=== PATIENT | female | born 1930 | race Caucasian/White ===

== ENCOUNTER 2018-07-13 13:12 | Emergency (ER) | payer OTHER ==
[~2018-07-13] VITALS: Ht 165.1 cm; Wt 63.5 kg
[~2018-07-13 13:12] MED LIST: CLONAZEPAM1 MG PO; LISINOPRIL-HCT1 EAC1; LORTAB 7.5-5001 EACH PO; PILOCARPINE HCL; SIMVASTATIN10 MG PO; TRAVATAN Z5 ML; XARELTO10 MG PO
--- OUTSIDE RECORDS SUMMARY | 2018-07-13 13:16 | XMS REPORT ---
Author Author [facility] Address Unknown Phone Unavailable Care Team Providers Care Trailer Sections Assembler Name Role Phone CARLENE COBOS Unavailable Unavailable ANDRZEJ KAISER Unavailable Unavailable Problems This patient has no known problems. Allergies, Adverse Reactions, Alerts This patient has no known allergies or adverse reactions. Medications This patient has no known medications. Results Test Description Test Time Test Comments Text Results Atomic Results Result Comments BLOOD CULTURE 2017-12-17 18:00:00 CULTURE (BEAKER) (test iryh=9689) No growth in 5 days BLOOD [id number] 18:00:00* Test Item Value Reference Range Comments CULTURE (BEAKER) (test kdhh=9457) No growth in 5 days BASIC METABOLIC [id number] 12:17:00* Test Item Value Reference Range Comments SODIUM (BEAKER) (test suex=002) 134 meq/L 136-145 Discordant from previous results. Clinical correlation suggested. POTASSIUM (BEAKER) (test hmmy=830) 3.5 meq/L 3.5-5.1 CHLORIDE (BEAKER) (test sntl=539) 99 meq/L 98-107 CO2 (BEAKER) (test qtwv=087) 22 meq/L 22-29 BLOOD UREA NITROGEN (BEAKER) (test ouip=767) 13 mg/dL 7-21 CREATININE (BEAKER) (test qxeq=275) 0.78 mg/dL 0.57-1.25 GLUCOSE RANDOM (BEAKER) (test lwab=131) 91 mg/dL 70-105 CALCIUM (BEAKER) (test gjml=610) 9.8 mg/dL 8.4-10.2 EGFR (BEAKER) (test tblu=0413) 70 mL/min/1.73 sq m ESTIMATED GFR IS NOT ACCURATE CREATININE CLEARANCE IN PREDICTING GLOMERULAR FILTRATION RATE. ESTIMATED GFR IS NOT APPLICABLE FOR DIALYSIS PATIENTS. BASIC METABOLIC [id number] 11:25:00* Test Item Value Reference Range Comments SODIUM (BEAKER) (test gkdy=555) 134 meq/L 136-145 POTASSIUM (BEAKER) (test gobo=576) 3.9 meq/L 3.5-5.1 CHLORIDE (BEAKER) (test bzzn=149) 100 meq/L 98-107 CO2 (BEAKER) (test lral=345) 22 meq/L 22-29 BLOOD UREA NITROGEN (BEAKER) (test mgoh=726) 12 mg/dL 7-21 CREATININE (BEAKER) (test njja=520) 0.77 mg/dL 0.57-1.25 GLUCOSE RANDOM (BEAKER) (test twki=257) 104 mg/dL 70-105 CALCIUM (BEAKER) (test rihg=191) 9.5 mg/dL 8.4-10.2 EGFR (BEAKER) (test hlsp=6856) 71 mL/min/1.73 sq m ESTIMATED GFR IS NOT ACCURATE CREATININE CLEARANCE IN PREDICTING GLOMERULAR FILTRATION RATE. ESTIMATED GFR IS NOT APPLICABLE FOR DIALYSIS PATIENTS. [id number] 08:02:00* Test Item Value Reference Range Comments MAGNESIUM (BEAKER) (test pjdt=183) 1.7 mg/dL 1.6-2.6 CBC W/PLT COUNT & AUTO [id number] 07:41:00* Test Item Value Reference Range Comments WHITE BLOOD CELL COUNT (BEAKER) (test hjag=141) 8.6 K/ L 3.5-10.5 RED BLOOD CELL COUNT (BEAKER) (test fcxw=759) 3.44 M/ L 3.93-5.22 HEMOGLOBIN (BEAKER) (test azro=058) 10.2 GM/DL 11.2-15.7 HEMATOCRIT (BEAKER) (test uabn=943) 30.4 % 34.1-44.9 MEAN CORPUSCULAR VOLUME (BEAKER) (test blpm=367) 88.4 fL 79.4-94.8 MEAN CORPUSCULAR HEMOGLOBIN (BEAKER) (test tbtj=554) 29.7 pg 25.6-32.2 MEAN CORPUSCULAR HEMOGLOBIN CONC (BEAKER) (test xjgs=254) 33.6 GM/DL 32.2-35.5 RED CELL DISTRIBUTION WIDTH (BEAKER) (test irvq=916) 13.5 % 11.7-14.4 PLATELET COUNT (BEAKER) (test tlkv=476) 414 K/CU MM 150-450 MEAN PLATELET VOLUME (BEAKER) (test mabj=723) 10.2 fL 9.4-12.3 NUCLEATED RED BLOOD CELLS (BEAKER) (test cbeg=933) 0 /100 WBC 0-0 NEUTROPHILS RELATIVE PERCENT (BEAKER) (test yjem=875) 54 % LYMPHOCYTES RELATIVE PERCENT (BEAKER) (test aqgi=665) 28 % MONOCYTES RELATIVE PERCENT (BEAKER) (test aozy=203) 9 % EOSINOPHILS RELATIVE PERCENT (BEAKER) (test kyox=081) 7 % BASOPHILS RELATIVE PERCENT (BEAKER) (test wpfo=129) 1 % NEUTROPHILS ABSOLUTE COUNT (BEAKER) (test hmrq=354) 4.59 K/ L 1.56-6.13 LYMPHOCYTES ABSOLUTE COUNT (BEAKER) (test kcvg=336) 2.43 K/ L 1.18-3.74 MONOCYTES ABSOLUTE COUNT (BEAKER) (test ngkm=306) 0.80 K/ L 0.24-0.36 EOSINOPHILS ABSOLUTE COUNT (BEAKER) (test ijyo=336) 0.62 K/ L 0.04-0.36 BASOPHILS ABSOLUTE COUNT (BEAKER) (test fktp=928) 0.09 K/ L 0.01-0.08 IMMATURE GRANULOCYTES-RELATIVE PERCENT (BEAKER) (test spat=1424) 1 % 0-1 [id number] 07:09:00* Test Item Value Reference Range Comments MAGNESIUM (BEAKER) (test eflr=691) 1.4 mg/dL 1.6-2.6 BASIC METABOLIC [id number] 07:09:00* Test Item Value Reference Range Comments SODIUM (BEAKER) (test todz=811) 126 meq/L 136-145 POTASSIUM (BEAKER) (test ioki=729) 3.5 meq/L 3.5-5.1 CHLORIDE (BEAKER) (test tara=743) 95 meq/L 98-107 CO2 (BEAKER) (test cttp=083) 21 meq/L 22-29 BLOOD UREA NITROGEN (BEAKER) (test ajba=894) 16 mg/dL 7-21 CREATININE (BEAKER) (test svcu=606) 0.84 mg/dL 0.57-1.25 GLUCOSE RANDOM (BEAKER) (test upkg=824) 91 mg/dL 70-105 CALCIUM (BEAKER) (test vwik=308) 9.9 mg/dL 8.4-10.2 EGFR (BEAKER) (test altk=0285) 64 mL/min/1.73 sq m ESTIMATED GFR IS NOT ACCURATE CREATININE CLEARANCE IN PREDICTING GLOMERULAR FILTRATION RATE. ESTIMATED GFR IS NOT APPLICABLE FOR DIALYSIS PATIENTS. TROPONIN [id number] 07:08:00* Test Item Value Reference Range Comments TROPONIN I (BEAKER) (test vrkk=409) 0.03 ng/mL 0.00-0.03 Troponin I (TnI) levels must be interpreted in the context of the presenting sym ptoms and the clinical findings. Elevated TnI levels indicate myocardial damage, but are not specific for ischemic heart disease. Elevated TnI levels are seen in patients with other cardiac conditions (including myocarditis and congestive h eart failure), and slight TnI elevations occur in patients with other conditions , including sepsis, renal failure, acidosis, acute neurological disease, and per sistent tachyarrhythmia.CBC W/PLT COUNT & AUTO [id number] 06:25:00* Test Item Value Reference Range Comments WHITE BLOOD CELL COUNT (BEAKER) (test pbmk=773) 7.7 K/ L 3.5-10.5 RED BLOOD CELL COUNT (BEAKER) (test qzow=818) 3.26 M/ L 3.93-5.22 HEMOGLOBIN (BEAKER) (test yaqu=031) 9.4 GM/DL 11.2-15.7 HEMATOCRIT (BEAKER) (test gxmb=704) 28.3 % 34.1-44.9 MEAN CORPUSCULAR VOLUME (BEAKER) (test buvz=294) 86.8 fL 79.4-94.8 MEAN CORPUSCULAR HEMOGLOBIN (BEAKER) (test jrru=840) 28.8 pg 25.6-32.2 MEAN CORPUSCULAR HEMOGLOBIN CONC (BEAKER) (test moia=869) 33.2 GM/DL 32.2-35.5 RED CELL DISTRIBUTION WIDTH (BEAKER) (test koaq=330) 13.2 % 11.7-14.4 PLATELET COUNT (BEAKER) (test vfyx=875) 424 K/CU MM 150-450 MEAN PLATELET VOLUME (BEAKER) (test xukl=043) 9.6 fL 9.4-12.3 NUCLEATED RED BLOOD CELLS (BEAKER) (test xqco=385) 0 /100 WBC 0-0 NEUTROPHILS RELATIVE PERCENT (BEAKER) (test gwdk=026) 55 % LYMPHOCYTES RELATIVE PERCENT (BEAKER) (test xmpn=521) 28 % MONOCYTES RELATIVE PERCENT (BEAKER) (test vqws=053) 10 % EOSINOPHILS RELATIVE PERCENT (BEAKER) (test nahi=977) 5 % BASOPHILS RELATIVE PERCENT (BEAKER) (test htcf=144) 1 % NEUTROPHILS ABSOLUTE COUNT (BEAKER) (test oxgu=375) 4.29 K/ L 1.56-6.13 LYMPHOCYTES ABSOLUTE COUNT (BEAKER) (test hslr=676) 2.19 K/ L 1.18-3.74 MONOCYTES ABSOLUTE COUNT (BEAKER) (test wvbr=318) 0.75 K/ L 0.24-0.36 EOSINOPHILS ABSOLUTE COUNT (BEAKER) (test wwsk=201) 0.36 K/ L 0.04-0.36 BASOPHILS ABSOLUTE COUNT (BEAKER) (test verr=615) 0.09 K/ L 0.01-0.08 IMMATURE GRANULOCYTES-RELATIVE PERCENT (BEAKER) (test yvba=1349) 1 % 0-1 RAPID [id number] 15:15:00* Test Item Value Reference Range Comments RAPID CKMB (BEAKER) (test umvm=9048) 10.5 ng/mL 0.0-4.3 RAPID TROPONIN [id number] 15:15:00* Test Item Value Reference Range Comments RAPID TROPONIN I (BEAKER) (test isdl=8329) < ng/mL <0.05 CT, BRAIN, WITHOUT [id number] 15:15:00FINAL REPORT CT head without contrast. Comparisons: No Reason for exam: Syncope/faintingweakness. Discussion: Multiple axial CT images of the head are provided without contrast evaluated in brain and bone windows. Dose modulation, iterative reconstruction, and/or weight based adjustment of the mA/kV was utilized to reduce the radiation dose to as low as reasonably achievable. There is no CT evidence of intracranial hemorrhage, mass-effect, g ross hydrocephalus, shift, or extra-axial collections. Bilateral cerebral micro vascular changes are noted with chronic and age indeterminate appearing involvem ent. There are intracranial vascular calcifications. Mild prominence of the vent ricular system is likely reflection of volume loss. Correlate clinically for nor mal pressure hydrocephalus. The visualized dural sinus regions, orbital content s, paranasal sinuses, bones and surrounding soft tissues are unremarkable. I mpressions: 1. No specific evidence of acute intracranial abnormality. Microva scular changes as discussed. 2. Mild ventricular prominence for which normal pre ssure hydrocephalus cannot be excluded. Signed: Brennan Martineprema Andrade D ate/Time: 12/12/2017 15:15:07 C METABOLIC [id number] 15:04:00* Test Item Value Reference Range Comments SODIUM (BEAKER) (test zgsb=588) 128 meq/L 135-148 POTASSIUM (BEAKER) (test fjjr=784) 4.6 meq/L 3.6-5.5 CHLORIDE (BEAKER) (test vwve=099) 87 meq/L 98-106 CO2 (BEAKER) (test finh=868) 24 meq/L 24-32 BLOOD UREA NITROGEN (BEAKER) (test uism=383) 20 mg/dL 10-26 CREATININE (BEAKER) (test ezmb=970) 0.83 mg/dL 0.50-1.20 GLUCOSE RANDOM (BEAKER) (test mkoc=055) 116 mg/dL 70-110 CALCIUM (BEAKER) (test vbwm=862) 10.2 mg/dL 8.5-10.5 EGFR (BEAKER) (test cbpt=4848) 65 mL/min/1.73 sq m ESTIMATED GFR IS NOT ACCURATE CREATININE CLEARANCE IN PREDICTING GLOMERULAR FILTRATION RATE. ESTIMATED GFR IS NOT APPLICABLE FOR DIALYSIS PATIENTS. CBC W/PLT COUNT & AUTO [id number] 15:01:00* Test Item Value Reference Range Comments WHITE BLOOD CELL COUNT (BEAKER) (test vfku=018) 10.9 10e3/ L 4.0-10.0 RED BLOOD CELL COUNT (BEAKER) (test qiok=511) 3.75 10e6/ L 4.00-5.00 HEMOGLOBIN (BEAKER) (test xcwu=872) 11.2 g/dL 12.0-15.0 HEMATOCRIT (BEAKER) (test zxbx=075) 32.6 % 36.0-45.0 MEAN CORPUSCULAR VOLUME (BEAKER) (test mgzq=197) 87.0 fL 82.0-99.0 MEAN CORPUSCULAR HEMOGLOBIN (BEAKER) (test sjdh=200) 29.7 pg 27.0-33.0 MEAN CORPUSCULAR HEMOGLOBIN CONC (BEAKER) (test kjzb=277) 34.2 g/dL 32.0-36.0 RED CELL DISTRIBUTION WIDTH (BEAKER) (test rfna=201) 12.7 % 10.3-14.2 PLATELET COUNT (BEAKER) (test khfm=949) 445 10e3/ L 150-430 MEAN PLATELET VOLUME (BEAKER) (test pkog=193) 7.2 fL 6.5-10.5 NEUTROPHILS RELATIVE PERCENT (BEAKER) (test cneq=496) 73 % LYMPHOCYTES RELATIVE PERCENT (BEAKER) (test pklg=565) 18 % MONOCYTES RELATIVE PERCENT (BEAKER) (test wagf=356) 7 % EOSINOPHILS RELATIVE PERCENT (BEAKER) (test bemb=512) 2 % BASOPHILS RELATIVE PERCENT (BEAKER) (test eiiy=033) 1 % NEUTROPHILS ABSOLUTE COUNT (BEAKER) (test ulpa=134) 7.89 10e3/ L 1.80-8.00 LYMPHOCYTES ABSOLUTE COUNT (BEAKER) (test bwqb=767) 1.94 10e3/ L 1.48-4.50 MONOCYTES ABSOLUTE COUNT (BEAKER) (test vety=929) 0.78 10e3/ L 0.00-1.30 EOSINOPHILS ABSOLUTE COUNT (BEAKER) (test romu=117) 0.16 10e3/ L 0.00-0.50 BASOPHILS ABSOLUTE COUNT (BEAKER) (test xsla=987) 0.08 10e3/ L 0.00-0.20 LACTIC ACID, VENOUS, WHOLE [id number] 15:01:00* Test Item Value Reference Range Comments LACTATE BLOOD VENOUS (2) (BEAKER) (test hxoc=4856) 1.3 mmol/L 0.5-2.2 Effective 01/25/2016: Units/Reference Range ChangeNew: 0.5-2.2 mmol/L Previous: 5 -18 mg/dLURINALYSIS W/ [id number] 14:23:00* Test Item Value Reference Range Comments COLOR (BEAKER) (test pugd=935) Yellow CLARITY (BEAKER) (test shmf=089) Clear SPECIFIC GRAVITY UA (BEAKER) (test eeez=606) 1.011 1.001-1.035 PH UA (BEAKER) (test olsz=542) 5.5 5.0-8.0 PROTEIN UA (BEAKER) (test jcrn=688) Negative Negative GLUCOSE UA (BEAKER) (test betq=838) Negative Negative KETONES UA (BEAKER) (test sjni=530) Negative Negative BILIRUBIN UA (BEAKER) (test jmpa=033) Negative Negative BLOOD UA (BEAKER) (test rbbe=288) Negative Negative NITRITE UA (BEAKER) (test ggta=041) Negative Negative LEUKOCYTE ESTERASE UA (BEAKER) (test pqbn=768) Negative Negative UROBILINOGEN UA (BEAKER) (test vdsc=023) 0.2 mg/dL 0.2-1.0 BACTERIA (BEAKER) (test anoq=643) Occasional RBC UA-MANUAL (BEAKER) (test kpkn=0363) <5 /HPF WBC UA-MANUAL (BEAKER) (test kzia=1336) <5 /HPF SQUAMOUS EPITHELIAL MANUAL (BEAKER) (test bzak=4226) <5 /HPF SOURCE(BEAKER) (test jqvo=1156) RAD, CHEST, 1 VIEW, NON [id number] 14:09:00Reason for exam:->sobpt was seen at [facility] today drowsy and with low BP 109/64Should this be performed at the bedside?->YesFINAL REPORT TECHNIQUE: Frontal chest radiograph dated 12/12/2017. CLINICAL HISTORY: SOB COMPARISON STUDY: None IMPRESSION:Lungs are clear. No pleural effusion or pneumothorax. Cardiomediastinal silhouette is normal in size. No pulmonary edema. Degenerative changes are seen in the spine. No fracture. Signed: Cece Alcocer MDReport Verified Date/Time: 12/12/2017 14:09:49 Reading Location: [facility] Radiology Reading Room UE [id number] 10:35:00Surgical Pathology Report Case: [id number] Authorizing Provider: Hayde Kaiser, Collected: 11/28/2017 0858 Ordering Location: [facility] PERIOPERATIVE Received: 11/28/2017 0959 SERVICES Pathologist: Paulino Leigh MD Specimen: Condyle,Right Knee BONE, RIGHT KNEE CONDYLE, RESECTION: - OSTEOARTHRITIS - NO EVIDENCE OF MALIGNANCY Signing Pathologist Direct Phone Line: [phone] signed by Paulino Leigh MD on 12/06/2017 at 10:35 [id number], [id number] osteoarthritis of right kneeRight knee condyleThe specimen is received in a formalin-filled container and labeled with the patient's information labeled with patient information and labeled "right knee condyle" and consists of multiple fragments of bernabe-pink knee bone and soft tis brandy measuring 7.5 x 5 x 2 cm in aggregate. Bone fragments have distinct osteophy te formation with focal areas of eburnation. Section code: A1 and A2, bone submi tted for decalcification; A3, soft tissue and bone submitted for decalcification . CG/pl The sections show reduplication of the tidemark with eburnation and oste ophyte formation.BASIC METABOLIC [id number] 06:04:00* Test Item Value Reference Range Comments SODIUM (BEAKER) (test ejrz=575) 137 meq/L 136-145 POTASSIUM (BEAKER) (test hskr=417) 3.5 meq/L 3.5-5.1 CHLORIDE (BEAKER) (test elfa=764) 104 meq/L 98-107 CO2 (BEAKER) (test trug=279) 25 meq/L 22-29 BLOOD UREA NITROGEN (BEAKER) (test nckk=173) 12 mg/dL 7-21 CREATININE (BEAKER) (test eltf=721) 0.78 mg/dL 0.57-1.25 GLUCOSE RANDOM (BEAKER) (test rsdx=024) 108 mg/dL 70-105 CALCIUM (BEAKER) (test ucmb=541) 8.9 mg/dL 8.4-10.2 EGFR (BEAKER) (test lbbj=5872) 70 mL/min/1.73 sq m ESTIMATED GFR IS NOT ACCURATE CREATININE CLEARANCE IN PREDICTING GLOMERULAR FILTRATION RATE. ESTIMATED GFR IS NOT APPLICABLE FOR DIALYSIS PATIENTS. HEMOGLOBIN AND [id number] 05:17:00* Test Item Value Reference Range Comments HEMOGLOBIN (BEAKER) (test shmp=894) 9.6 GM/DL 11.2-15.7 HEMATOCRIT (BEAKER) (test stpp=047) 28.0 % 34.1-44.9 HEMOGLOBIN AND [id number] 18:18:00* Test Item Value Reference Range Comments HEMOGLOBIN (BEAKER) (test qofu=606) 9.1 GM/DL 11.2-15.7 HEMATOCRIT (BEAKER) (test vqhd=456) 27.6 % 34.1-44.9 Post transfusionBASIC METABOLIC [id number] 07:01:00* Test Item Value Reference Range Comments SODIUM (BEAKER) (test eivz=189) 136 meq/L 136-145 POTASSIUM (BEAKER) (test jonb=956) 3.9 meq/L 3.5-5.1 CHLORIDE (BEAKER) (test qdnw=099) 107 meq/L 98-107 CO2 (BEAKER) (test guze=176) 22 meq/L 22-29 BLOOD UREA NITROGEN (BEAKER) (test imli=900) 15 mg/dL 7-21 CREATININE (BEAKER) (test qzhl=627) 0.82 mg/dL 0.57-1.25 GLUCOSE RANDOM (BEAKER) (test opxc=306) 98 mg/dL 70-105 CALCIUM (BEAKER) (test flwr=252) 8.6 mg/dL 8.4-10.2 EGFR (BEAKER) (test uzga=9694) 66 mL/min/1.73 sq m ESTIMATED GFR IS NOT ACCURATE CREATININE CLEARANCE IN PREDICTING GLOMERULAR FILTRATION RATE. ESTIMATED GFR IS NOT APPLICABLE FOR DIALYSIS PATIENTS. HEMOGLOBIN AND [id number] 06:17:00* Test Item Value Reference Range Comments HEMOGLOBIN (BEAKER) (test quaf=509) 7.0 GM/DL 11.2-15.7 HEMATOCRIT (BEAKER) (test jtvb=858) 21.4 % 34.1-44.9 BASIC METABOLIC [id number] 07:41:00* Test Item Value Reference Range Comments SODIUM (BEAKER) (test uiyx=715) 131 meq/L 136-145 POTASSIUM (BEAKER) (test lrcx=220) 4.5 meq/L 3.5-5.1 CHLORIDE (BEAKER) (test mpgy=647) 104 meq/L 98-107 CO2 (BEAKER) (test bkxt=955) 20 meq/L 22-29 BLOOD UREA NITROGEN (BEAKER) (test fhwo=958) 21 mg/dL 7-21 CREATININE (BEAKER) (test cioy=742) 0.92 mg/dL 0.57-1.25 GLUCOSE RANDOM (BEAKER) (test kchk=096) 153 mg/dL 70-105 CALCIUM (BEAKER) (test nbdl=937) 8.6 mg/dL 8.4-10.2 EGFR (BEAKER) (test mjcx=6074) 58 mL/min/1.73 sq m ESTIMATED GFR IS NOT ACCURATE CREATININE CLEARANCE IN PREDICTING GLOMERULAR FILTRATION RATE. ESTIMATED GFR IS NOT APPLICABLE FOR DIALYSIS PATIENTS. HEMOGLOBIN AND [id number] 07:07:00* Test Item Value Reference Range Comments HEMOGLOBIN (BEAKER) (test lwev=011) 8.0 GM/DL 11.2-15.7 HEMATOCRIT (BEAKER) (test xrqa=614) 23.9 % 34.1-44.9 [id number] 07:40:00* Test Item Value Reference Range Comments SODIUM (BEAKER) (test gxzz=799) 133 meq/L 136-145 POTASSIUM (BEAKER) (test diij=998) 4.3 meq/L 3.5-5.1 Specimen slightly hemolyzed CHLORIDE (BEAKER) (test atvd=880) 101 meq/L 98-107 CO2 (BEAKER) (test vlbn=748) 22 meq/L 22-29 BUN AND [id number] 07:40:00* Test Item Value Reference Range Comments BLOOD UREA NITROGEN (BEAKER) (test ifac=532) 23 mg/dL 7-21 CREATININE (BEAKER) (test tfoh=760) 0.98 mg/dL 0.57-1.25 Specimen slightly hemolyzed EGFR (BEAKER) (test dhld=6717) 54 mL/min/1.73 sq m ESTIMATED GFR IS NOT ACCURATE CREATININE CLEARANCE IN PREDICTING GLOMERULAR FILTRATION RATE. ESTIMATED GFR IS NOT APPLICABLE FOR DIALYSIS PATIENTS. [id number] 07:00:00* Test Item Value Reference Range Comments HEMOGLOBIN (BEAKER) (test dprj=066) 11.1 GM/DL 11.2-15.7 PLATELET [id number] 07:00:00* Test Item Value Reference Range Comments PLATELET COUNT (BEAKER) (test upaj=796) 240 K/CU MM 150-450
--- OUTSIDE RECORDS SUMMARY | 2018-07-13 13:16 | XMS REPORT | Clinical Summary ---
Author Author [facility] Address Unknown Phone Unavailable Care Team Providers Care Activities Officer Name Role Phone PCP Unavailable Allergies Active Allergy Reactions Severity Noted Date Comments Baclofen 06/26/2016 Nightmares Codeine Other (See Comments) 12/23/2014 Hallucinations ,constipation as per daughter (Barbara) Timolol Maleate Other (See Comments) 12/12/2017 Conjunctivitis as per [facility] clinic notes Tramadol Hcl Other (See Comments) 12/23/2014 Hallucinations Etodolac Low 06/26/2016 Nightmares Current Medications Prescription Sig. Disp. Refills Start End Date Status Date lisinopril-hydrochlorothi Take 1 tablet by mouth Active azide daily. (PRINZIDE,ZESTORETIC) 20-25 mg per tablet simvastatin (ZOCOR) 20 MG Take 20 mg by mouth Active tablet nightly. clonazePAM (KLONOPIN) 1 Take 1 mg by mouth every Active MG tablet night as needed for Anxiety. docusate sodium (COLACE) Take 100 mg by mouth as Active 100 MG capsule needed for Constipation. fenofibrate (LOFIBRA) 54 Take 54 mg by mouth Active MG tablet daily. ferrous sulfate 325 (65 Take 325 mg by mouth Active FE) MG tablet daily with breakfast. latanoprost (XALATAN) 1 drop nightly. Active 0.005 % ophthalmic solution olopatadine (PATANOL) 0.1 1 drop daily. Active % ophthalmic solution ondansetron (ZOFRAN) 8 MG Take by mouth every 8 Active tablet (eight) hours as needed for Nausea. aspirin 325 MG EC tablet Take 1 tablet (325 mg 0 12/15/19 Active total) by mouth daily. 18 acetaminophen (TYLENOL) Take 650 mg by mouth 11/30/19 Discontin 325 MG tablet every 6 (six) hours as 18 ued needed for Pain. HYDROcodone-acetaminophen Take 1 tablet by mouth 11/30/19 Discontin (NORCO 5-325) 5-325 mg every 6 (six) hours as 18 ued per tablet needed for Pain. aspirin 325 MG EC tablet Take 1 tablet (325 mg 14 tablet 0 11/30/19 12/15/19 Discontin total) by mouth daily for 18 18 ued 14 days. HYDROcodone-acetaminophen Take 1 tablet by mouth 60 tablet 0 11/30/19 12/15/19 (NORCO 5-325) 5-325 mg every 4 (four) hours as 18 18 per tablet needed for Pain for up to 15 days. Max Daily Amount: 6 tablets Active Problems Problem Noted Date Acute encephalopathy 12/14/2017 Acute hyponatremia 12/13/2017 Generalized weakness 12/12/2017 Arthritis of right knee 11/28/2017 Status post right knee replacement 11/28/2017 Open-angle glaucoma 12/23/2014 Overview: UPDATED BY ICD10 SNOMED/IMO UPDATES Encounters Date Type Specialty Care Team Description 12/12/2017 Emergency General Internal Medicine Brandt Gilbert MD Generalized weakness - Othee, Jackson Madden MD (Primary 12/14/2017 Joyce Marina MD Dx);Hyponatremia;Altered Nini Puga mental status, unspecified altered mental status type 12/12/2017 Orders Only General Internal Medicine 11/28/2017 [facility] General Internal Medicine Hayde Salvador, - Encounter MD 12/01/2017 11/28/2017 Procedure Pass 11/28/2017 Surgery Hayde Salvador, ARTHROPLASTY,KNEE MD UNILATERAL 11/27/2017 Anesthesia Jason Tesfaye, Event 11/26/2017 Orders Only Vijaya Carlisle PA 11/26/2017 Orders Only Vijaya Carlisle PA 11/20/2017 Hospital Pre-Admission Testing Encounter after 07/12/2017 Social History Tobacco Use Types Packs/Day Years Used Date Never Smoker Smokeless Tobacco: Never Used Alcohol Use Drinks/Week oz/Week Comments No Sex Assigned at Date Recorded Not on file Last Filed Vital Signs Vital Sign Reading Time Taken Blood Pressure 141/68 12/14/2017 5:00 AM CDT Pulse 70 12/14/2017 5:00 AM CDT Temperature 35.9 C (96.7 F) 12/14/2017 5:00 AM CDT Respiratory Rate 20 12/14/2017 5:00 AM CDT Oxygen Saturation 99% 12/14/2017 5:00 AM CDT Inhaled Oxygen - - Concentration Weight 68 kg (150 lb) 12/14/2017 6:00 AM CDT Height 165.1 cm (5' 5") 12/12/2017 1:42 PM CDT Body Mass Index 24.96 12/14/2017 6:00 AM CDT Plan of Treatment Not on file Implants Implanted Type Area Payroll Accounting Clerk Device Expiration Model / Identifier Date Serial / Lot Cement Bone Surg Smplx P Full Cement/Fredy Right: BETO:BETO 02/21/2020 6191-1-001 [id number] - [id number] ler/Adhesi Knee ORTHOPAEDICS / Implanted: Qty: 2 on 11/28/2017 by ve / Hayde Salvador MD [id number] Patella Tri Asymmetric [id number] Joints Right: BETO:BETO 08/29/2022 5551-G-[id number] [id number]-G-[id number] - [id number] Knee ORTHOPAEDICS / Implanted: Qty: 1 on 11/28/2017 by / Hayde Salvador MD [id number] Insrt Tib #4 9mm 5530-G-409 - Joints Right: BETO:BETO 04/17/2022 5530-G-[id number] Knee ORTHOPAEDICS / Implanted: Qty: 1 on 11/28/2017 by / Hayde Salvador MD [id number] Femoral #3 R [id number]-[id number] - Joints Right: BETO:BETO 07/04/2022 5510-F-302 [id number] Knee ORTHOPAEDICS / Implanted: Qty: 1 on 11/28/2017 by / Hayde Salvador MD [id number] Baseplt Tri Ts 4 5521-[id number] - Joints Right: BETO:BETO 07/22/2022 5521-B-[id number] Knee ORTHOPAEDICS / Implanted: Qty: 1 on 11/28/2017 by / Hayde Salvador MD [id number] Procedures Procedure Name Priority Date/Time Associated Diagnosis Comments ARTHROPLASTY,KNEE 11/28/2017 Primary osteoarthritis of UNILATERAL 6: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 Component Value Ref Range Sodium 134 (L) 136 - 145 meq/L Potassium 3.9 3.5 - 5.1 meq/L Chloride 100 98 - 107 meq/L CO2 22 22 - 29 meq/L BUN 12 7 - 21 mg/dL Creatinine 0.77 0.57 - 1.25 mg/dL Glucose 104 70 - 105 mg/dL Calcium 9.5 8.4 - 10.2 mg/dL EGFR 71Comment: ESTIMATED GFR IS NOT ACCURATE mL/min/1.73 sq m CREATININE CLEARANCE IN PREDICTING GLOMERULAR FILTRATION RATE. ESTIMATED GFR IS NOT APPLICABLE FOR DIALYSIS PATIENTS. Specimen Performing Laboratory Blood - Arm, [facility] [address] [place] [id number] * CBC with platelet count + automated diff (12/14/2017 6:19 AM) Only the most recent of 3 results within the time period is included. Component Value Ref Range WBC 8.6 3.5 - 10.5 K/L RBC 3.44 (L) 3.93 - 5.22 M/L Hemoglobin 10.2 (L) 11.2 - 15.7 GM/DL Hematocrit 30.4 (L) 34.1 - 44.9 % MCV 88.4 79.4 - 94.8 fL MCH 29.7 25.6 - 32.2 pg MCHC 33.6 32.2 - 35.5 GM/DL RDW 13.5 11.7 - 14.4 % Platelets 414 150 - 450 K/CU MM MPV 10.2 9.4 - 12.3 fL nRBC 0 0 - 0 /100 WBC % Neutros 54 % % Lymphs 28 % % Monos 9 % % Eos 7 % % Baso 1 % # Neutros 4.59 1.56 - 6.13 K/L # Lymphs 2.43 1.18 - 3.74 K/L # Monos 0.80 (H) 0.24 - 0.36 K/L # Eos 0.62 (H) 0.04 - 0.36 K/L # Baso 0.09 (H) 0.01 - 0.08 K/L Immature 1 0 - 1 % Granulocytes-Relative Specimen [place] [address] * CBC with platelet count + automated diff (12/14/2017 6:19 AM) Only the most recent of 3 results within the time period is included. Specimen Performing Laboratory Blood Narrative The following orders were created for panel order CBC with platelet count + automated diff. Procedure Abnormality Status --------- ------ CBC with platelet count ...[[id number]]AbnormalFinal result Please view results for these tests on the individual orders. * Magnesium (12/14/2017 6:19 AM) Only the most recent of 2 results within the time period is included. Component Value Ref Range Magnesium 1.7 1.6 - 2.6 mg/dL Specimen [place] [address] * PERIPHERAL VASCULAR REPORT - SCAN (12/13/2017 12:20 PM) * Venous doppler legs bilateral (12/13/2017 10:30 AM) Component Value Ref Range Ejection Fraction Specimen Performing Laboratory SLE ECHO [facility] MKCKESSON CPACS Impressions Right Impression 1. There is no deep venous obstruction in the common femoral, profunda femoral, femoral, popliteal, posterior tibial or peroneal veins. 2. There is no superficial venous obstruction in the great saphenous vein. Left Impression 1. There is no deep venous obstruction in the common femoral, profunda femoral, femoral, popliteal, posterior tibial or peroneal veins. 2. There is no superficial venous obstruction in the great saphenous vein. Conclusions Summary Venous duplex imaging and compression of the bilateral lower extremities were performed. The veins were adequately visualized. The bilateral venous systems were patent and compressible with no evidence of thrombus. The venous Doppler waveforms were phasic with respiration. Signature Velocities are measured in cm/s ; Diameters are measured in cm Narrative [facility] - Lower Extremities DVT Study Demographics Patient NameMORory RUSSELL of Study 12/13/2017 ANGELES Age 87 Visit [id number] GenderFemale Date of 1930 Number Referring Hayde Salvador Room Number [id number] Physician Anime Artist Tiffany Carter InterpretingJWhit Espinoza RN, Antony VILLARREAL, ELSIE Procedure Type of Study: Veins: Lower Extremities DVT Study, VENOUS DOPPLER LEG, BILATERAL. Indications for Study:R/O DVT. Patient Status:STAT. Study Location:Vascular Lab. Technical Quality:Adequate visualization. Risk Factors History of Disease + +----+ + !Diagnosis!Date!Comments ! + +----+ + !History/Risk Factors:!!HTN, HLD, Right knee replacement 11/29/2017! + +----+ + Procedure Note Interface, External Ris In - 12/13/2017 11:49 AM CDT [facility] - Lower Extremities DVT Study Demographics Patient Name JANE PIERCE Date of Study 12/13/2017 ANGELES Age 87 Visit Number [id number] Gender Female Date of 1930 Number Referring Hayde Salvador Room Number [id number] Physician Anime Artist Tiffany Carter Interpreting Leticia Espinoza RN, T Physician MD, RPVI Procedure Type of Study: Veins: Lower Extremities DVT Study, VENOUS DOPPLER LEG, BILATERAL. Indications for Study:R/O DVT. Patient Status:STAT. Study Location:Vascular Lab. Technical Quality:Adequate visualization. Risk Factors History of Disease + +----+ + !Diagnosis !Date!Comments ! + +----+ + !History/Risk Factors:! !HTN, HLD, Right knee replacement 11/29/2017 ! + +----+ + Impressions Right Impression 1. There is no deep venous obstruction in the common femoral, profunda femoral, femoral, popliteal, posterior tibial or peroneal veins. 2. There is no superficial venous obstruction in the great saphenous vein. Left Impression 1. There is no deep venous obstruction in the common femoral, profunda femoral, femoral, popliteal, posterior tibial or peroneal veins. 2. There is no superficial venous obstruction in the great saphenous vein. Conclusions Summary Venous duplex imaging and compression of the bilateral lower extremities were performed. The veins were adequately visualized. The bilateral venous systems were patent and compressible with no evidence of thrombus. The venous Doppler waveforms were phasic with respiration. Signature Velocities are measured in cm/s ; Diameters are measured in cm * Troponin I (12/13/2017 4:50 AM) Component Value Ref Range Troponin I 0.03 0.00 - 0.03 ng/mL Specimen Performing [place] [address] Narrative Troponin I (TnI) levels must be interpreted in the context of the presenting symptoms and the clinical findings. Elevated TnI levels indicate myocardial damage, but are not specific for ischemic heart disease. Elevated TnI levels are seen in patients with other cardiac conditions (including myocarditis and congestive heart failure), and slight TnI elevations occur in patients with other conditions, including sepsis, renal failure, acidosis, acute neurological disease, and persistent tachyarrhythmia. * ED ECG Interpretation (12/12/2017 6:13 PM) Narrative Jackson Richard MD 12/12/20176:13 PM ECG/EKG Interpretation Date/Time: 12/12/2017 3:09 PM Performed by: JACKSON RICHARD Authorized by: JACKSON RICHARD The ECG was interpreted by ED physician. This ECG was not compared with previous ECG(s).The ECG is interpreted as sinus rhythm. Rate is normal rate. Conduction: conduction normal. ST segments normal. T waves normal. Other findings: no other findings. Clinical Impression: non-specific ECGECG reviewed and does not meet STEMI criteria. * CT brain without IV contrast (12/12/2017 3:07 PM) Specimen Performing Laboratory [facility] RIS Narrative FINAL REPORT CT head without contrast. Comparisons: No Reason for exam: Syncope/fainting weakness. Discussion: Multiple axial CT images of the head are provided without contrast evaluated in brain and bone windows. Dose modulation, iterative reconstruction, and/or weight based adjustment of the mA/kV was utilized to reduce the radiation dose to as low as reasonably achievable. There is no CT evidence of intracranial hemorrhage, mass-effect, gross hydrocephalus, shift, or extra-axial collections.Bilateral cerebral microvascular changes are noted with chronic and age indeterminate appearing involvement. There are intracranial vascular calcifications. Mild prominence of the ventricular system is likely reflection of volume loss. Correlate clinically for normal pressure hydrocephalus. The visualized dural sinus regions, orbital contents, paranasal sinuses, bones and surrounding soft tissues are unremarkable. Impressions: 1. No specific evidence of acute intracranial abnormality. Microvascular changes as discussed. 2. Mild ventricular prominence for which normal pressure hydrocephalus cannot be excluded. Signed: Ivana Ren MD Report Verified Date/Time:12/12/2017 15:15:07 Procedure Note Interface, External Ris In - 12/12/2017 3:17 PM CDT FINAL REPORT CT head without contrast. Comparisons: No Reason for exam: Syncope/fainting weakness. Discussion: Multiple axial CT images of the head are provided without contrast evaluated in brain and bone windows. Dose modulation, iterative reconstruction, and/or weight based adjustment of the mA/kV was utilized to reduce the radiation dose to as low as reasonably achievable. There is no CT evidence of intracranial hemorrhage, mass-effect, gross hydrocephalus, shift, or extra-axial collections. Bilateral cerebral microvascular changes are noted with chronic and age indeterminate appearing involvement. There are intracranial vascular calcifications. Mild prominence of the ventricular system is likely reflection of volume loss. Correlate clinically for normal pressure hydrocephalus. The visualized dural sinus regions, orbital contents, paranasal sinuses, bones and surrounding soft tissues are unremarkable. Impressions: 1. No specific evidence of acute intracranial abnormality. Microvascular changes as discussed. 2. Mild ventricular prominence for which normal pressure hydrocephalus cannot be excluded. Signed: Ivana Ren MD Report Verified Date/Time: 12/12/2017 15:15:07 * ECG 12 lead (12/12/2017 2:45 PM) Specimen Performing Laboratory GE MUSE Narrative Ventricular Rate 100 BPM Atrial Rate 100 BPM P-R Interval 192 ms QRS Duration 82 ms Q-T Interval 362 ms QTC Calculation(Bazett) 466 ms P [place] 63 degrees R [place] -36 degrees T [place] 16 degrees Sinus rhythm with Premature atrial complexes Left axis deviation Minimal voltage criteria for LVH, may be normal variant Abnormal ECG No previous ECGs available Confirmed by Delfino LAM MICHAEL ([id number]) on 12/13/2017 6:46:56 AM Procedure Note Interface, External Ris In - 12/13/2017 6:47 AM CDT Ventricular Rate 100 BPM Atrial Rate 100 BPM P-R Interval 192 ms QRS Duration 82 ms Q-T Interval 362 ms QTC Calculation(Bazett) 466 ms P [place] 63 degrees R [place] -36 degrees T [place] 16 degrees Sinus rhythm with Premature atrial complexes Left axis deviation Minimal voltage criteria for LVH, may be normal variant Abnormal ECG No previous ECGs available Confirmed by Delfino LAM MICHAEL ([id number]) on 12/13/2017 6:46:56 AM * Rapid Troponin I (12/12/2017 2:10 PM) Component Value Ref Range Rapid Troponin I <0.05 <0.05 ng/mL Specimen Performing Laboratory Blood - Arm, Right [facility], [facility], [facility] [address] [place] [address] * Rapid CK-MB (12/12/2017 2:10 PM) Component Value Ref Range Rapid CKMB 10.5 (H) 0.0 - 4.3 ng/mL Specimen Performing Laboratory Blood - Arm, Right [facility], [facility], [facility] [address] [place] [address] * Lactic acid, venous, whole blood (12/12/2017 2:10 PM) Component Value Ref Range Lactate, Venous 1.3 0.5 - 2.2 mmol/L Specimen Performing Laboratory Blood - Arm, Right [facility], [facility], [facility] [address] [place] [address] Narrative Effective 01/25/2016: Units/Reference Range Change New: 0.5-2.2 mmol/LPrevious: 5-18 mg/dL * Blood culture (12/12/2017 2:10 PM) Only the most recent of 2 results within the time period is included. Component Value Ref Range Result No growth in 5 days Specimen Performing Laboratory Blood - Arm, Left [address] [address] * Urinalysis w/Microscopic - Cath (12/12/2017 2:09 PM) Component Value Ref Range Color, UA Yellow Clarity, UA Clear Specific [place], UA 1.011 1.001 - 1.035 pH, UA 5.5 5.0 - 8.0 Protein, UA Negative Negative Glucose, UA Negative Negative Ketones, UA Negative Negative Bilirubin, UA Negative Negative Blood, UA Negative Negative Nitrite, UA Negative Negative Leukocytes, UA Negative Negative Urobilinogen, UA 0.2 0.2 - 1.0 mg/dL Bacteria, UA Occasional RBC, UA <5 /HPF WBC, UA <5 /HPF SQUAMOUS EPITHELIAL <5 /HPF Specimen Source Specimen Performing Laboratory Urine - Urine, [facility], [facility], [facility] [address] [place] [address] * XR chest 1 view portable / bedside (12/12/2017 2:00 PM) Specimen Performing Laboratory GE RIS Narrative FINAL REPORT TECHNIQUE: Frontal chest radiograph dated 12/12/2017. CLINICAL HISTORY: SOB COMPARISON STUDY: None IMPRESSION: Lungs are clear. No pleural effusion or pneumothorax. Cardiomediastinal silhouette is normal in size. No pulmonary edema. Degenerative changes are seen in the spine. No fracture. Signed: Jonna Gallegos MD Report Verified Date/Time:12/12/2017 14:09:49 Reading Location: [facility] Radiology Reading Room Procedure Note Interface, External Ris In - 12/12/2017 2:12 PM CDT FINAL REPORT TECHNIQUE: Frontal chest radiograph dated 12/12/2017. CLINICAL HISTORY: SOB COMPARISON STUDY: None IMPRESSION: Lungs are clear. No pleural effusion or pneumothorax. Cardiomediastinal silhouette is normal in size. No pulmonary edema. Degenerative changes are seen in the spine. No fracture. Signed: Jonna Gallegos MD Report Verified Date/Time: 12/12/2017 14:09:49 Reading Location: [facility] Radiology Reading Room * TRANSFUSION SERVICE REPORT - SCAN (12/02/2017 5:41 PM) Only the most recent of 3 results within the time period is included. * Prepare Leuko-Red RBC (12/01/2017 11:54 PM) Component Value Ref Range CROSSMATCH COMPATIBLE Unit ABO A Pos UNIT NUMBER [id number] Status TRANSFUSED Blood Bank Product RED BLOOD CELLS PRODUCT CODE [id number] CROSSMATCH COMPATIBLE Unit ABO A Pos UNIT NUMBER [id number] Status TRANSFUSED Blood Bank Product RED BLOOD CELLS PRODUCT CODE [id number] Specimen Performing Laboratory Other [facility] [place] * Hemoglobin and hematocrit (12/01/2017 4:51 AM) Only the most recent of 4 results within the time period is included. Component Value Ref Range Hemoglobin 9.6 (L) 11.2 - 15.7 GM/DL Hematocrit 28.0 (L) 34.1 - 44.9 % Specimen Performing [place] [address] * Transfuse Leuko-Red RBC (11/30/2017 5:08 PM) Only the most recent of 3 results within the time period is included. * Tissue Exam (11/28/2017 8:58 AM) Component Value Ref Range Case Report Surgical Pathology Report Case: [id number] Authorizing Provider:Hayde Salvador, Collected: 11/28/2017 0858 Ordering Location: [facility] Received:11/28/2017 0959 SERVICES Pathologist: Paulino Leigh MD Specimen:Condyle,Right Knee DIAGNOSIS BONE, RIGHT KNEE CONDYLE, RESECTION: - OSTEOARTHRITIS - NO EVIDENCE OF MALIGNANCY Signing Pathologist Direct Phone Line: [phone] CPT Code(s) 14369, 38487 CLINICAL HISTORY Primary osteoarthritis of right knee SPECIMEN SOURCE Right knee condyle GROSS DESCRIPTION The specimen is received in a formalin-filled container and labeled with the patient's information labeled with patient information and labeled "right knee condyle" and consists of multiple fragments of bernabe-pink knee bone and soft tissue measuring 7.5 x 5 x 2 cm in aggregate. Bone fragments have distinct osteophyte formation with focal areas of eburnation. Section code: A1 and A2, bone submitted for decalcification; A3, soft tissue and bone submitted for decalcification. CG/pl MICROSCOPIC DESCRIPTION The sections show reduplication of the tidemark with eburnation and osteophyte formation. Specimen Performing Laboratory Tissue - Condyle,Right [facility] K[address] [place] [address] * ANESTHESIA PERIPHERAL BLOCK (11/28/2017 8:35 AM) Narrative Manolo Wong MD 11/28/20178:35 AM Peripheral Block Patient location during procedure: pre-op Start time: 11/28/2017 7:56 AM End time: 11/28/2017 8:05 AM Reason for block: procedure for pain, at surgeon's request and post-op pain management Staffing Anesthesiologist: MANOLO WONG Performed by: anesthesiologist Preanesthetic Checklist Completed: patient identified, site marked, surgical consent, pre-op evaluation, timeout performed, IV checked, risks and benefits discussed and monitors and equipment checked Peripheral Block Patient position: supine Prep: ChloraPrep Patient monitoring: heart rate, ekg monitor tech and continuous pulse ox Block type: Adductor canal Laterality: right Injection technique: catheter Procedures: ultrasound guided and landmark technique Local infiltration: ropivicaine Infiltration strength: 0.5 % Dose: 30 mL Needle Needle type: Tuohy Needle gauge: 17 G Needle length: 100 mm Catheter type: open end Catheter size: 19 G Test dose: negative Assessment Injection assessment: negative aspiration for heme, no paresthesia on injection, incremental injection and local visualized surrounding nerve on ultrasound Paresthesia pain: none Heart rate change: no Slow fractionated injection: yes Additional Notes Patient tolerated well.No pain on injection or throughout procedure. Procedure Note Manolo Wong MD - 11/28/2017 8:26 AM WIRE BRUSHER Peripheral Block Patient location during procedure: pre-op Start time: 11/28/2017 7:56 AM End time: 11/28/2017 8:05 AM Reason for block: procedure for pain, at surgeon's request and post-op pain management Staffing Anesthesiologist: MANOLO WONG Performed by: anesthesiologist Preanesthetic Checklist Completed: patient identified, site marked, surgical consent, pre-op evaluation, timeout performed, IV checked, risks and benefits discussed and monitors and equipment checked Peripheral Block Patient position: supine Prep: ChloraPrep Patient monitoring: heart rate, ekg monitor tech and continuous pulse ox Block type: Adductor canal Laterality: right Injection technique: catheter Procedures: ultrasound guided and landmark technique Local infiltration: ropivicaine Infiltration strength: 0.5 % Dose: 30 mL Needle Needle type: Tuohy Needle gauge: 17 G Needle length: 100 mm Catheter type: open end Catheter size: 19 G Test dose: negative Assessment Injection assessment: negative aspiration for heme, no paresthesia on injection, incremental injection and local visualized surrounding nerve on ultrasound Paresthesia pain: none Heart rate change: no Slow fractionated injection: yes Additional Notes Patient tolerated well. No pain on injection or throughout procedure. * ANESTHESIA SPINAL BLOCK (11/28/2017 8:35 AM) Narrative Manolo Wong MD 11/28/20178:35 AM Spinal Block Patient location during procedure: Block Room Start time: 11/28/2017 7:44 AM End time: 11/28/2017 7:53 AM Reason for block: procedure for pain, at surgeon's request and post-op pain management Staffing Anesthesiologist: MANOLO WONG Performed by: anesthesiologist Preanesthetic Checklist Completed: patient identified, site marked, surgical consent, pre-op evaluation, timeout performed, IV checked, risks and benefits discussed and monitors and equipment checked Spinal Block Patient position: sitting Prep: Betadine Patient monitoring: heart rate, ekg monitor tech and continuous pulse ox Approach: midline Location: L3-4 Injection technique: single-shot Needle Needle type: pencil-tip Needle gauge: 25 G Needle length: 13 cm Assessment Sensory level: T10 Events: cerebrospinal fluid Procedure Note Manolo Wong MD - 11/28/2017 8:26 AM WIRE BRUSHER Spinal Block Patient location during procedure: Block Room Start time: 11/28/2017 7:44 AM End time: 11/28/2017 7:53 AM Reason for block: procedure for pain, at surgeon's request and post-op pain management Staffing Anesthesiologist: MANOLO WONG Performed by: anesthesiologist Preanesthetic Checklist Completed: patient identified, site marked, surgical consent, pre-op evaluation, timeout performed, IV checked, risks and benefits discussed and monitors and equipment checked Spinal Block Patient position: sitting Prep: Betadine Patient monitoring: heart rate, ekg monitor tech and continuous pulse ox Approach: midline Location: L3-4 Injection technique: single-shot Needle Needle type: pencil-tip Needle gauge: 25 G Needle length: 13 cm Assessment Sensory level: T10 Events: cerebrospinal fluid * Type and screen, automated (11/28/2017 6:20 AM) Component Value Ref Range ABO/RH AUTOMATED (BEAKER) A POSITIVE Ab Scrn NEGATIVE Specimen Performing Laboratory [address] [address] * BUN and Creatinine (11/28/2017 6:20 AM) Component Value Ref Range BUN 23 (H) 7 - 21 mg/dL Creatinine 0.98Comment: Specimen slightly hemolyzed 0.57 - 1.25 mg/dL EGFR 54Comment: ESTIMATED GFR IS NOT ACCURATE mL/min/1.73 sq m CREATININE CLEARANCE IN PREDICTING GLOMERULAR FILTRATION RATE. ESTIMATED GFR IS NOT APPLICABLE FOR DIALYSIS PATIENTS. Specimen Performing Laboratory [address] [address] * Platelet count (11/28/2017 6:20 AM) Component Value Ref Range Platelets 240 150 - 450 K/CU MM Specimen Performing Laboratory [address] [address] * Hemoglobin (11/28/2017 6:20 AM) Component Value Ref Range Hemoglobin 11.1 (L) 11.2 - 15.7 GM/DL Specimen Performing Laboratory [address] [address] * Electrolytes (11/28/2017 6:20 AM) Component Value Ref Range Sodium 133 (L) 136 - 145 meq/L Potassium 4.3Comment: Specimen slightly hemolyzed 3.5 - 5.1 meq/L Chloride 101 98 - 107 meq/L CO2 22 22 - 29 meq/L Specimen Performing Laboratory Blood [facility] [address] [address] after 07/12/2017
[2018-07-13] MEDS ORDERED: CYCLOBENZAPRINE HCL 10 MG TAB PO ONE (14:15)
[2018-07-13 14:23] VITALS: BP 150/80
== END 2018-07-13 14:25 | disposition home or self-care (01) ==
LOC: FSED 13:12
DX: M54.2 Cervicalgia (principal); M62.838 Other muscle spasm; I10 Essential (primary) hypertension
CPT/HCPCS: 99282

== ENCOUNTER 2018-07-25 21:13 | Emergency (ER) | payer OTHER ==
[~2018-07-25] VITALS: Ht 165.1 cm; Wt 63.5 kg
--- OUTSIDE RECORDS SUMMARY | 2018-07-25 21:17 | XMS REPORT | Clinical Summary ---
Author Author [facility] Address Unknown Phone Unavailable Care Team Providers Care Medical Billing Manager Name Role Phone Sharpless PCP Allergies Comments Active Allergy Reactions Severity Noted Date Nightmares Baclofen 06/26/2016 Hallucinations ,constipation as per daughter (Barbara) Codeine Other (See 12/23/2014 Comments) Nightmares Etodolac Low 06/26/2016 Conjunctivitis as per [facility] clinic notes Timolol Maleate Other (See 12/12/2017 Comments) Hallucinations Tramadol Hcl Other (See 12/23/2014 Comments) Medications End Date Status Medication Sig Dispensed Refills Start Date Active lisinopril-hydrochlorothi Take 1 tablet 0 azide by mouth (PRINZIDE,ZESTORETIC) daily. 20-25 mg per tablet Active simvastatin (ZOCOR) 20 MG Take 20 mg by 0 tablet mouth nightly. Active clonazePAM (KLONOPIN) 1 Take 1 mg by 0 MG tablet mouth every night as needed for Anxiety. Active docusate sodium (COLACE) Take 100 mg 0 100 MG capsule by mouth as needed for Constipation. Active fenofibrate (LOFIBRA) 54 Take 54 mg by 0 MG tablet mouth daily. Active ferrous sulfate 325 (65 Take 325 mg 0 FE) MG tablet by mouth daily with breakfast. Active latanoprost (XALATAN) 1 drop 0 0.005 % ophthalmic nightly. solution Active olopatadine (PATANOL) 0.1 1 drop daily. 0 % ophthalmic solution Active ondansetron (ZOFRAN) 8 MG Take by mouth 0 tablet every 8 (eight) hours as needed for Nausea. Active aspirin 325 MG EC tablet Take 1 tablet 0 (325 mg 8 total) by mouth daily. 11/29/2017 Discontinued acetaminophen (TYLENOL) Take 650 mg 0 325 MG tablet by mouth every 6 (six) hours as needed for Pain. 11/29/2017 Discontinued HYDROcodone-acetaminophen Take 1 tablet 0 (NORCO 5-325) 5-325 mg by mouth per tablet every 6 (six) hours as needed for Pain. 12/14/2017 Discontinued aspirin 325 MG EC tablet Take 1 tablet 14 tablet 0 (325 mg 8 total) by mouth daily for 14 days. 12/14/2017 HYDROcodone-acetaminophen Take 1 tablet 60 tablet 0 (NORCO 5-325) 5-325 mg by mouth 8 per tablet every 4 (four) hours as needed for Pain for up to 15 days. Max Daily Amount: 6 tablets Active Problems Problem Noted Date Acute encephalopathy 12/14/2017 Acute hyponatremia 12/13/2017 Generalized weakness 12/12/2017 Arthritis of right knee 11/28/2017 Status post right knee replacement 11/28/2017 Open-angle glaucoma 12/23/2014 Overview: UPDATED BY ICD10 SNOMED/IMO UPDATES Encounters Care Team Description Date Type Specialty Brandt Gilbert MD Othekalpana, MD Laina Champagne Tuyen V., MD Alagugurusamy, Rajkumar, MD Generalized weakness (Primary Dx); Hyponatremia; Altered mental status, unspecified altered mental status type 12/12/2017 Emergency General Internal Medicine - 12/14/2017 12/12/2017 Orders Only General Internal Medicine Hayde Salvador MD ARTHROPLASTY,KNEE UNILATERAL 11/28/2017 Surgery Hayde Salvador MD 11/28/2017 Hospital General Internal Medicine - Encounter 12/01/2017 Jason Tesfaye MD 11/27/2017 Anesthesia Event Vijaya Carlisle PA 11/26/2017 Orders Only Vijaya Carlisle PA 11/26/2017 Orders Only 11/20/2017 Hospital Pre-Admission Testing Encounter after 07/24/2017 Social History Date Tobacco Use Types Packs/Day Years Used Never Smoker Smokeless Tobacco: Never Used Alcohol Use Drinks/Week oz/Week Comments No Sex Assigned at Date Recorded Not on file Industry Job Start Date Occupation Not on file Not on file Not on file Travel End Travel History Travel Start No recent travel history available. Last Filed Vital Signs Time Taken Vital Sign Reading 12/14/2017 5:00 AM CDT Blood Pressure 141/68 12/14/2017 5:00 AM CDT Pulse 70 12/14/2017 5:00 AM CDT Temperature 35.9 C (96.7 F) 12/14/2017 5:00 AM CDT Respiratory Rate 20 12/14/2017 5:00 AM CDT Oxygen Saturation 99% - Inhaled Oxygen - Concentration 12/14/2017 6:00 AM CDT Weight 68 kg (150 lb) 12/12/2017 1:42 PM CDT Height 165.1 cm (5' 5") 12/14/2017 6:00 AM CDT Body Mass Index 24.96 Plan of Treatment Not on file Implants Device Identifier Shelf Expiration Date Model / Serial / Lot Implanted Type Area Manufactur er 02/21/2020 6191-1-001 / / [id number] Cement Bone Surg Smplx P Full Cement/Fredy Right: Knee BETO:ST 6191-1-001 - [id number] ler/Adhesi BRIDGER Implanted: Qty: 2 on 11/28/2017 by Hayde Gallego MD 08/29/2022 5551-G-[id number] / / [id number] Patella Tri Asymmetric [id number] Joints Right: Knee BETO:ST 5551-G-320 - [id number] BRIDGER Implanted: Qty: 1 on 11/28/2017 by Hayde Jonas MD 04/17/2022 5530-G-[id number] / / [id number] Insrt Tib #4 9mm 5530-G-409 - Joints Right: Knee BETO:ST [id number] BRIDGER Implanted: Qty: 1 on 11/28/2017 by Hayde Jonas MD 07/04/2022 5510-F-302 / / [id number] Comp Femoral #3 R 5510-F-302 - Joints Right: Knee BETO:ST [id number] BRIDGER Implanted: Qty: 1 on 11/28/2017 by Hayde Jonas MD 07/22/2022 5521-[id number] / / [id number] Baseplt Tri Ts 4 5521-[id number]-400 - Joints Right: Knee BETO:ST [id number] BRIDGER Implanted: Qty: 1 on 11/28/2017 by Hayde Jonas MD CS Procedures Comments Procedure Name Priority Date/Time Associated Diagnosis RHYTHM STRIP - SCAN 12/16/2017 2:09 PM CDT BASIC METABOLIC PANEL (7) STAT 12/14/2017 9:27 AM CDT CBC W/PLT COUNT & AUTO Routine 12/14/2017 DIFFERENTIAL 6:19 AM CDT CBC W/PLT COUNT & AUTO Routine 12/14/2017 DIFFERENTIAL 6:19 AM CDT MAGNESIUM Routine 12/14/2017 6:19 AM CDT BASIC METABOLIC PANEL (7) Routine 12/14/2017 6:19 AM CDT PERIPHERAL VASCULAR 12/13/2017 REPORT - SCAN 12:20 PM CDT VENOUS DOPPLER LEGS STAT 12/13/2017 BILATERAL 10:30 AM CDT CBC W/PLT COUNT & AUTO Routine 12/13/2017 DIFFERENTIAL 4:50 AM CDT CBC W/PLT COUNT & AUTO Routine 12/13/2017 DIFFERENTIAL 4:50 AM CDT MAGNESIUM Routine 12/13/2017 4:50 AM CDT BASIC METABOLIC PANEL (7) Routine 12/13/2017 4:50 AM CDT TROPONIN I Routine 12/13/2017 4:50 AM CDT ED ECG INTERPRETATION Routine 12/12/2017 6:[address] BRAIN WITHOUT IV STAT 12/12/2017 CONTRAST 3:07 PM CDT ECG 12-LEAD Routine 12/12/2017 2:45 PM CDT Procedure Note - Interface, External Ris In - 12/12/2017 7:27 PM CDT Ventricula r Rate 100 BPM Atrial Rate 100 BPM P-R Interval 192 ms QRS Duration 82 ms Q-T Interval 362 ms QTC Calculatio n(Bazett) 466 ms P Fols[place] 63 degrees R [place]ols[place] -36 degrees [place] 16 degrees Sinus rhythm with Premature atrial complexes Left axis deviation Minimal voltage criteria for LVH, may be normal variant Abnormal ECG No previous ECGs available ECG 12-LEAD Routine 12/12/2017 2:45 PM CDT CBC W/PLT COUNT & AUTO STAT 12/12/2017 DIFFERENTIAL 2:10 PM CDT LACTIC ACID, VENOUS, STAT 12/12/2017 WHOLE BLOOD 2:10 PM CDT RAPID TROPONIN I STAT 12/12/2017 2:10 PM CDT RAPID CK-MB STAT 12/12/2017 2:10 PM CDT BASIC METABOLIC PANEL (7) STAT 12/12/2017 2:10 PM CDT CBC W/PLT COUNT & AUTO STAT 12/12/2017 DIFFERENTIAL 2:10 PM CDT BLOOD CULTURE STAT 12/12/2017 2:10 PM CDT BLOOD CULTURE STAT 12/12/2017 2:10 PM CDT URINALYSIS W/ MICROSCOPIC STAT 12/12/2017 2:09 PM CDT XR CHEST 1 VIEW STAT 12/12/2017 PORTABLE/BEDSIDE 2:00 PM CDT TRANSFUSION SERVICE 12/02/2017 REPORT - SCAN 5:41 PM CDT PREPARE LEUKO-REDUCED RBC Routine 12/01/2017 11:54 PM CDT TRANSFUSION SERVICE 12/01/2017 REPORT - SCAN 5:41 PM CDT HEMOGLOBIN AND HEMATOCRIT Routine 12/01/2017 4:51 AM CDT BASIC METABOLIC PANEL (7) Routine 12/01/2017 4:51 AM CDT HEMOGLOBIN AND HEMATOCRIT Routine 11/30/2017 6:00 PM MASTER CRAFTSMAN TRANSFUSE LEUKO-REDUCED Routine 11/30/2017 RED BLOOD CELLS 5:08 PM MASTER CRAFTSMAN TRANSFUSE LEUKO-REDUCED Routine 11/30/2017 RED BLOOD CELLS 12:48 PM MASTER CRAFTSMAN HEMOGLOBIN AND HEMATOCRIT Routine 11/30/2017 4:36 AM MASTER CRAFTSMAN BASIC METABOLIC PANEL (7) Routine 11/30/2017 4:36 AM MASTER CRAFTSMAN TRANSFUSION SERVICE 11/29/2017 REPORT - SCAN 5:42 PM MASTER CRAFTSMAN HEMOGLOBIN AND HEMATOCRIT Routine 11/29/2017 5:26 AM MASTER CRAFTSMAN BASIC METABOLIC PANEL (7) Routine 11/29/2017 5:26 AM MASTER CRAFTSMAN TISSUE EXAM AP Routine 11/28/2017 8:58 AM MASTER CRAFTSMAN ANESTHESIA PERIPHERAL Routine 11/28/2017 BLOCK 8:35 AM MASTER CRAFTSMAN ANESTHESIA SPINAL BLOCK Routine 11/28/2017 8:35 AM MASTER CRAFTSMAN ARTHROPLASTY,KNEE 11/28/2017 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 CRAFTSMAN right knee Case Notes PERCERT RECVD Special Needs (SPINAL/EP IDURAL W/ADDUCTOR CANAL BLOCK, BETO TRIATHLON) TYPE AND SCREEN, Routine 11/28/2017 AUTOMATED 6:20 AM MASTER CRAFTSMAN BUN AND CREATININE STAT 11/28/2017 6:20 AM MASTER CRAFTSMAN ELECTROLYTE PANEL STAT 11/28/2017 6:20 AM MASTER CRAFTSMAN PLATELET COUNT STAT 11/28/2017 6:20 AM MASTER CRAFTSMAN HEMOGLOBIN STAT 11/28/2017 6:20 AM MASTER CRAFTSMAN after 07/24/2017 Results * RHYTHM STRIP - SCAN (12/16/2017 2:09 PM CDT) Narrative Performed At * Basic Metabolic Panel (12/14/2017 9:27 AM CDT) Only the most recent of 7 results within the time period is included. Sodium 134 (L) 136 - 145 meq/L [facility] Potassium 3.9 3.5 - 5.1 meq/L [facility] Chloride 100 98 - 107 meq/L [facility] CO2 22 22 - 29 meq/L [facility] BUN 12 7 - 21 mg/dL [facility] Creatinine 0.77 0.57 - 1.25 mg/dL [facility] Glucose 104 70 - 105 mg/dL [facility] Calcium 9.5 8.4 - 10.2 mg/dL [facility] EGFR 71Comment: ESTIMATED GFR IS mL/min/1.73 sq m [facility] NOT ACCURATE CREATININE [facility] CLEARANCE IN PREDICTING GLOMERULAR FILTRATION RATE. ESTIMATED GFR IS NOT APPLICABLE FOR DIALYSIS PATIENTS. Specimen Blood - Arm, Left Performing Organization Address City/State/Zipcode Phone Number [facility] [address] [place] [address] MEDICAL CENTER * CBC with platelet count + automated diff (12/14/2017 6:19 AM CDT) Only the most recent of 3 results within the time period is included. WBC 8.6 3.5 - 10.5 K/L [facility] RBC 3.44 (L) 3.93 - 5.22 M/L [facility] Hemoglobin 10.2 (L) 11.2 - 15.7 GM/DL [facility] Hematocrit 30.4 (L) 34.1 - 44.9 % [facility] MCV 88.4 79.4 - 94.8 fL [facility] MCH 29.7 25.6 - 32.2 pg [facility] MCHC 33.6 32.2 - 35.5 GM/DL [facility] RDW 13.5 11.7 - 14.4 % [facility] Platelets 414 150 - 450 K/CU MM [facility] MPV 10.2 9.4 - 12.3 fL [facility] nRBC 0 0 - 0 /100 WBC [facility] % Neutros 54 % [facility] % Lymphs 28 % [facility] % Monos 9 % [facility] % Eos 7 % [facility] % Baso 1 % [facility] # Neutros 4.59 1.56 - 6.13 K/L [facility] # Lymphs 2.43 1.18 - 3.74 K/L [facility] # Monos 0.80 (H) 0.24 - 0.36 K/L [facility] # Eos 0.62 (H) 0.04 - 0.36 K/L [facility] # Baso 0.09 (H) 0.01 - 0.08 K/L [facility] Immature 1 0 - 1 % [facility] Granulocytes-[facility] Specimen Blood Performing Organization Address City/State/Zipcode Phone Number [facility] [address] [place] [address] [phone] [place] [address] * Magnesium (12/14/2017 6:19 AM CDT) Only the most recent of 2 results within the time period is included. Magnesium 1.7 1.6 - 2.6 mg/dL [facility] Specimen Blood Performing Organization Address City/State/Zipcode Phone Number [facility] [address] [place] [address] [facility] * PERIPHERAL VASCULAR REPORT - SCAN (12/13/2017 12:20 PM CDT) Narrative Performed At * Venous doppler legs bilateral (12/13/2017 10:30 AM CDT) Ejection Fraction [facility] MKCKESSON CPACS Impressions Performed At Right Impression [facility] 1. There is no deep venous obstruction in the common femoral, profunda [facility] femoral, femoral, popliteal, posterior tibial or peroneal [...] ; Diameters are measured in cm Narrative Performed At PV LAB - Lower Extremities DVT Study [facility] Demographics [facility] Patient NameMORory RUSSELL of Study 12/13/2017 ANGELES Age 87 Visit [id number] GenderFemale Date of 1930 Number Referring Hayde Salvador Room Number [id number] Physician Plant Physiology Teacher Tiffany Carter InterpretingJ. Stanley Espinoza RN, Antony VILLARREAL, ELSIE Procedure Type [...] Study 12/13/2017 ANGELES Age 87 Visit Number [id number] Gender Female Date of 1930 Number Referring Hayde Salvador Room Number [id number] Physician Plant Physiology Teacher Tiffany Carter Interpreting Leticia Espinoza RN, RVT Physician , RPVI Procedure Type of Study: Veins: Lower [...] cm/s ; Diameters are measured in cm Performing Organization Address City/State[facility] Phone Number [facility] MKCKESSON CPACS * Troponin I (12/13/2017 4:50 AM CDT) Troponin I 0.03 0.00 - 0.03 ng/mL [facility] Specimen Blood Narrative Performed At Troponin I (TnI) levels must be interpreted in the context of the presenting [facility] symptoms and the clinical findings. Elevated TnI levels indicate myocardial [facility] damage, but are not specific for ischemic heart disease. Elevated TnI levels are seen in patients with other cardiac conditions (including myocarditis and congestive heart failure), and slight TnI elevations occur in patients with other conditions, including sepsis, renal failure, acidosis, acute neurological disease, and persistent tachyarrhythmia. Performing Organization Address City/State/Zipcode Phone Number [facility] [address] [place] [address] [facility] * ED ECG Interpretation (12/12/2017 6:13 PM CDT) Narrative Performed At Jackson Richard MD 12/12/20176:13 PM ECG/EKG Interpretation [...] CT brain without IV contrast (12/12/2017 3:07 PM CDT) Narrative Performed At FINAL REPORT [facility]ellaService CT head without contrast. Comparisons: No Reason [...] Ren MD Report Verified Date/Time: 12/12/2017 15:15:07 Performing Organization Address City/State/Zipcode Phone Number GE [facility] * ECG 12 lead (12/12/2017 2:45 PM CDT) Narrative Performed At Ventricular Rate 100 BPM GE MUSE Atrial Rate 100 BPM P-R Interval 192 ms QRS Duration 82 ms Q-T Interval 362 ms QTC Calculation(Bazett) 466 ms P [place] 63 degrees [place] -36 degrees [place] 16 degrees Sinus rhythm with Premature atrial complexes Left axis deviation Minimal voltage criteria for LVH, may be normal variant Abnormal ECG No previous ECGs available Confirmed by Delfino LAM, STANLEY ([id number]) on 12/13/2017 6:46:56 AM Procedure Note Interface, External Ris In - 12/13/2017 6:47 AM CDT Ventricular Rate 100 BPM Atrial Rate 100 BPM P-R Interval 192 ms QRS Duration 82 ms Q-T Interval 362 ms QTC Calculation(Bazett) 466 ms [place] 63 degrees [place] -36 degrees [place] 16 degrees Sinus rhythm with Premature atrial complexes Left axis deviation Minimal voltage criteria for LVH, may be normal variant Abnormal ECG No previous ECGs available Confirmed by Delfino LAM MICHAEL ([id number]) on 12/13/2017 6:46:56 AM Performing Organization Address [facility] Phone Number MUSE * Rapid Troponin I (12/12/2017 2:10 PM CDT) Rapid Troponin I <0.05 <0.05 ng/mL [facility], [facility] [place] Specimen Blood - Arm, Right Performing Organization Address [facility] Phone Number [address] [address] [facility], [facility] * Rapid CK-MB (12/12/2017 2:10 PM CDT) Rapid CKMB 10.5 (H) 0.0 - 4.3 ng/mL [facility] [place] Specimen Blood - Arm, Right Performing Organization Address [facility] Number [facility] [address] [place] [address] [facility], [facility] * Lactic acid, venous, whole blood (12/12/2017 2:10 PM CDT) Lactate, Venous 1.3 0.5 - 2.2 mmol/L [facility] [place] Specimen Blood - Arm, Right Narrative Performed At Effective 01/25/2016: Units/Reference Range Change [facility] New: 0.5-2.2 mmol/LPrevious: 5-18 mg/dL [facility] [place] Performing Organization Address [facility]/Zipcode Phone Number [place] [address] [place] [address] [facility], [facility] * Blood culture (12/12/2017 2:10 PM CDT) Only the most recent of 2 results within the time period is included. Result No growth in 5 days [facility] Specimen Blood - Arm, Left Performing Organization Address City/State/Zipcode Phone Number [facility] [address] [place] [address] [facility] [place] * Urinalysis w/Microscopic - Cath (12/12/2017 2:09 PM CDT) Color, UA Yellow [facility] Clarity, UA Clear [facility] [place] Specific [place], UA 1.011 1.001 - 1.035 [facility] pH, UA 5.5 5.0 - 8.[address] [facility] [place] Protein, UA Negative Negative [facility] Glucose, UA Negative Negative [facility] [place] Ketones, UA Negative Negative [facility] Bilirubin, UA Negative Negative [facility] [place] Blood, UA Negative Negative [facility] [place] Nitrite, UA Negative Negative [facility] Leukocytes, UA Negative Negative [facility] [place] Urobilinogen, UA 0.2 0.2 - 1.0 mg/dL [facility], [facility] Bacteria, UA Occasional [facility], [facility] RBC, UA <5 /HPF [facility], [facility] [place] WBC, UA <5 /HPF [facility], [facility] [place] SQUAMOUS EPITHELIAL <5 /HPF [facility] [place] Specimen Source [facility], [facility] [place] Specimen Urine - Urine, Straight Catheter Performing Organization Address City/State/Zipcode Phone Number [facility] [address] [place] [address] [facility], [facility] [place] * XR chest 1 view portable / bedside (12/12/2017 2:00 PM CDT) Narrative Performed At FINAL REPORT [employer] TECHNIQUE: Frontal chest radiograph dated 12/12/2017. CLINICAL HISTORY: SOB COMPARISON STUDY: None IMPRESSION: Lungs are clear. No pleural effusion or pneumothorax. Cardiomediastinal silhouette is normal in size. No pulmonary edema. Degenerative changes are seen in the spine. No fracture. Signed: Jonna Gallegos MD Report Verified Date/Time:12/12/2017 14:09:49 Reading Location: [facility] Radiology Reading Room Procedure Note Interface, [...] Report Verified Date/Time: 12/12/2017 14:09:49 Reading Location: [facility] Radiology Reading Room Performing Organization Address City/State/Zipcode Phone Number [facility] * TRANSFUSION SERVICE REPORT - SCAN (12/02/2017 5:41 PM CDT) Only the most recent of 3 results within the time period is included. Narrative Performed At * Prepare Leuko-Red RBC (12/01/2017 11:54 PM CDT) CROSSMATCH COMPATIBLE SAFETRACE TX Unit ABO A Pos SAFETRACE TX UNIT NUMBER [id number] SAFETRACE TX Status TRANSFUSED SAFETRACE TX Blood Bank Product RED BLOOD CELLS SAFETRACE TX PRODUCT CODE [id number] SAFETRACE TX CROSSMATCH COMPATIBLE SAFETRACE TX Unit ABO A Pos SAFETRACE TX UNIT NUMBER [id number] SAFETRACE TX Status TRANSFUSED SAFETRACE TX Blood Bank Product RED BLOOD CELLS SAFETRACE TX PRODUCT CODE [id number] SAFETRACE TX Specimen Other Performing Organization Address [facility] Phone Number SAFETRACE [place] * Hemoglobin and hematocrit (12/01/2017 4:51 AM CDT) Only the most recent of 4 results within the time period is included. Hemoglobin 9.6 (L) 11.2 - 15.7 GM/DL [facility] Hematocrit 28.0 (L) 34.1 - 44.9 % [facility] Specimen Blood Performing Organization Address [facility] Phone Number [place] [phone] [place] [address] * Transfuse Leuko-Red RBC (11/30/2017 5:08 PM MASTER CRAFTSMAN) Only the most recent of 3 results within the time period is included. * Tissue Exam (11/28/2017 8:58 AM MASTER CRAFTSMAN) Case Report Surgical Pathology [facility] Report [facility] Case: [id number] Authorizing Provider:Hayde Salvador, Collected: 11/28/201758 Ordering Location: [facility] PERIOPERATIVE Received: 11/28/201759 SERVICES Pathologist: Paulino Leigh MD Specimen:Condyle,Right Knee DIAGNOSIS BONE, RIGHT KNEE CONDYLE, [facility] RESECTION: [facility] - OSTEOARTHRITIS - NO EVIDENCE OF MALIGNANCY Signing Pathologist Direct Phone Line: [phone] CPT Code(s) 37453, 03788 [facility] CLINICAL HISTORY Primary osteoarthritis of [facility] right knee [facility] SPECIMEN SOURCE Right knee condyle [facility] GROSS DESCRIPTION The specimen is received in a [facility] formalin-filled container and [facility] labeled with the patient's information labeled with [...] decalcification. CG/pl MICROSCOPIC DESCRIPTION The sections show [facility] reduplication of the [facility] with eburnation and osteophyte formation. Specimen Tissue - Condyle,Right Knee Performing Organization Address City/State/Zipcode Phone Number [facility] [address] [place] [address] [facility] * ANESTHESIA PERIPHERAL BLOCK (11/28/2017 8:35 AM MASTER CRAFTSMAN) Narrative Performed At Manolo Wong MD 11/28/20178:35 AM Peripheral Block [...] supine Prep: ChloraPrep Patient monitoring: heart rate, shelter monitor and continuous pulse ox Block type: Adductor [...] Manolo Wong MD - 11/28/2017 8:26 AM MASTER CRAFTSMAN Peripheral Block Patient location during procedure: pre-op [...] supine Prep: ChloraPrep Patient monitoring: heart rate, shelter monitor and continuous pulse ox Block type: Adductor [...] procedure. * ANESTHESIA SPINAL BLOCK (11/28/2017 8:35 AM MASTER CRAFTSMAN) Narrative Performed At Manolo Wong MD 11/28/20178:35 AM Spinal Block [...] sitting Prep: Betadine Patient monitoring: heart rate, shelter monitor and continuous pulse ox Approach: midline Location: L3-4 Injection technique: single-shot Needle Needle type: pencil-tip Needle gauge: 25 G Needle length: 13 cm Assessment Sensory level: T10 Events: cerebrospinal fluid Procedure Note Manolo Wong MD - 11/28/2017 8:26 AM MASTER CRAFTSMAN Spinal Block Patient location during procedure: Block [...] sitting Prep: Betadine Patient monitoring: heart rate, shelter monitor and continuous pulse ox Approach: midline Location: L3-4 Injection technique: single-shot Needle Needle type: pencil-tip Needle gauge: 25 G Needle length: 13 cm Assessment Sensory level: T10 Events: cerebrospinal fluid * Type and screen, automated (11/28/2017 6:20 AM MASTER CRAFTSMAN) ABO/RH AUTOMATED (BEAKER) A POSITIVE [facility] Ab Scrn NEGATIVE [facility] [facility] Specimen Blood Performing Organization Address City/[facility] Phone Number [address] [address] [facility] * BUN and Creatinine (11/28/2017 6:20 AM [employer]) BUN 23 (H) 7 - 21 mg/dL [facility] Creatinine 0.98Comment: Specimen slightly 0.57 - 1.25 mg/dL [facility] hemolyzed [facility] EGFR 54Comment: ESTIMATED GFR IS mL/min/1.73 sq m [facility] NOT ACCURATE CREATININE [facility] CLEARANCE IN PREDICTING GLOMERULAR FILTRATION RATE. ESTIMATED GFR IS NOT APPLICABLE FOR DIALYSIS PATIENTS. Specimen Blood Performing Organization Address City/[facility]/Zipcode Phone Number [address] [address] [facility] * Platelet count (11/28/2017 6:20 AM [employer]SM[employer]) Platelets 240 150 - 450 K/CU MM [facility] Specimen Blood Performing Organization Address City/[facility]/Zipcode Phone Number [address] [address] [facility] * Hemoglobin (11/28/2017 6:20 AM [employer]) Hemoglobin 11.1 (L) 11.2 - 15.7 GM/DL [facility] Specimen Blood Performing Organization Address City/[facility] Phone Number [address] [address] [facility] * Electrolytes (11/28/2017 6:20 AM [employer]) Sodium 133 (L) 136 - 145 meq/L [facility] Potassium 4.3Comment: Specimen slightly 3.5 - 5.1 meq/L [facility] hemolyzed [facility] Chloride 101 98 - 107 meq/L [facility] CO2 22 22 - 29 meq/L [facility] Specimen Blood Performing Organization Address City/[facility] Hospitalcovt Phone Number [address] [address] [facility] after 07/24/2017 Insurance Payer Benefit Subscriber ID Type Phone Address Plan / Group [employer] [facility] [facility] Advance Directives For more information, please contact: [address] [address] Date Inactivated Comments Code Status Date Activated 12/14/2017 1:56 PM Full Code 12/13/2017 3:55 AM This code status was determined by: Patient 12/01/2017 3:48 PM Full Code 11/28/2017 5:06 AM This code status was determined by: Patient
--- NOTE | 2018-07-25 23:22 | Diagnostic Imaging Report ---
Examination: CT head without contrast Clinical Indication: Fall; head injury. Technique: Transaxial noncontrast images from the skull base through the vertex were obtained. Sagittal and coronal reformatted images were done. Dose modulation, iterative reconstruction, and/or weight based adjustment of the mA/kV was utilized to reduce the radiation dose to as low as reasonably achievable. Comparison: None. Findings: Scalp: Large left posterior parietal scalp hematoma. Bones: Intact. No fractures. No blastic or lytic lesions. Brain sulci: Appropriate for patient's age. Ventricles: No hydrocephalus. Extra-axial space: No abnormalities. Parenchyma: There are mild confluent areas of low-attenuation within subcortical and periventricular white matter, nonspecific, but could represent microvascular ischemic disease. No masses, hemorrhage, or acute or chronic cortical based vascular insults. Suprasellar region: No abnormalities. Craniocervical junction: The foramen magnum is patent. No Chiari one malformation. Incidental findings: Atherosclerotic calcification of the cavernous and supraclinoid internal carotid and V4 segments of the bilateral vertebral arteries. Impression: 1. Large left posterior parietal scalp hematoma. 2. No acute intracranial hemorrhage. 3. Moderate chronic microvascular ischemic change. Signed by: Dr. Brittani Miller M.D. on 07/25/2018 11:19 PM
--- NOTE | 2018-07-25 23:26 | Diagnostic Imaging Report ---
Examination: CT CERVICAL SPINE WITHOUT CONTRAST HISTORY:Neck injury after fall. COMPARISON:None. TECHNIQUE: Multidetector helical axial images were obtained without contrast from the foramen magnum to T1. Coronal and sagittal reformatted images were done. Bone and soft tissue windows were evaluated. Dose modulation, iterative reconstruction, and/or weight based adjustment of the mA/kV was utilized to reduce the radiation dose to as low as reasonably achievable. FINDINGS: Alignment:Normal alignment and lordosis. Vertebrae: Normal height and density. No acute fracture, infection or neoplasm. Caliber of spinal canal: Developmentally normal. Posterior fossa and craniocervical junction: Foramen magnum patent. No Chiari 1 malformation. Soft tissues: No abnormality. Degenerative changes: Diffuse disc osteophytes from C4 through T1 without canal stenosis. IMPRESSION: No acute abnormalities. Signed by: Dr. Brittani Miller M.D. on 07/25/2018 11:23 PM
== END 2018-07-26 | disposition home or self-care (01) ==
LOC: FSED 21:13
DX: S00.83XA Contusion of other part of head, initial encounter (principal); W18.39XA Other fall on same level, initial encounter; Y92.008 Other place in unspecified non-institutional (private) residence as the place of occurrence of the external cause; I10 Essential (primary) hypertension; E78.5 Hyperlipidemia, unspecified
CPT/HCPCS: 70450; 72125; 99283

== ENCOUNTER 2018-10-31 09:16 | Observation (INO) | payer MEDICARE, OTHER ==
[~2018-10-31] VITALS: Ht 165.1 cm; Wt 64.6 kg
--- OUTSIDE RECORDS SUMMARY | 2018-10-31 09:20 | XMS REPORT | Clinical Summary ---
Author Author [facility] Address Unknown Phone Unavailable Care Team Providers Care Button Riveter Name Role Phone Sharpless PCP Allergies Comments Active Allergy Reactions Severity Noted Date Nightmares Baclofen 06/26/2016 Hallucinations ,constipation as per daughter (Barbara) Codeine Other (See 12/23/2014 Comments) Nightmares Etodolac Low 06/26/2016 Conjunctivitis as per [facility] clinic notes Timolol Maleate Other (See 12/12/2017 [...] Description Date Type Specialty Brandt Gilbert MD Othee, MD Laina Champagne Tuyen V., MD Alagugurusamy, Rajkumar, MD Generalized weakness (Primary Dx); Hyponatremia; Altered mental status, unspecified altered mental status type 12/12/2017 Emergency General Internal Medicine - 12/14/2017 12/12/2017 Orders Only General Internal Medicine Jason Tesfaye Jr., MD 11/28/2017 Anesthesia Event Hayde Salvador MD ARTHROPLASTY,KNEE UNILATERAL 11/28/2017 Surgery Hayde Salvador MD 11/28/2017 Hospital General Internal Medicine - Encounter 12/01/2017 Vijaya Carlisle PA 11/26/2017 Orders Only Vijaya Carlisle PA 11/26/2017 Orders Only Julia Augustine Preadmit Phone 11/20/2017 Hospital Pre-Admission Testing Encounter after 10/30/2017 Social History Date Tobacco Use Types Packs/Day [...] Area Manufactur er 02/21/2020 6191-1-001 / / [id number] Cement Bone Surg Smplx P Full Cement/Fredy Right: Knee BETO:ST 6191-1-001 - [id number] ler/Adhesi BRIDGER Implanted: Qty: 2 on 11/28/2017 by Hayde Gallego MD 08/29/2022 5551-G-320 / / [id number] Patella Tri Asymmetric [id number] Joints Right: Knee BETO:ST 5551-G-320 - [id number] BRIDGER Implanted: Qty: 1 on 11/28/2017 by Hayde Jonas MD 04/17/2022 5530-G-409 / / [id number] Insrt Tib #4 9mm 5530-G-409 - Joints Right: Knee BETO:ST [id number] BRIDGER Implanted: Qty: 1 on 11/28/2017 by Hayde Jonas MD 07/04/2022 5510-F-302 / / [id number] Comp Femoral #3 R 5510-F-302 - Joints Right: Knee BETO:ST [id number] BRIDGER Implanted: Qty: 1 on 11/28/2017 by Hayde Jonas MD 07/22/2022 5521-B-400 / / [id number] Baseplt Tri Ts 4 5521-B-400 - Joints Right: Knee BETO:ST [id number] BRIDGER Implanted: Qty: 1 on 11/28/2017 by [...] ms QTC Calculatio n(Bazett) 466 ms P Morrill 63 degrees R Morrill -36 degrees T Morrill 16 degrees Sinus rhythm with Premature atrial [...] HEMOGLOBIN AND HEMATOCRIT Routine 11/30/2017 6:00 PM DEFECT CUTTER TRANSFUSE LEUKO-REDUCED Routine 11/30/2017 RED BLOOD CELLS 5:08 PM DEFECT CUTTER TRANSFUSE LEUKO-REDUCED Routine 11/30/2017 RED BLOOD CELLS 12:48 PM DEFECT CUTTER HEMOGLOBIN AND HEMATOCRIT Routine 11/30/2017 4:36 AM DEFECT CUTTER BASIC METABOLIC PANEL (7) Routine 11/30/2017 4:36 AM DEFECT CUTTER TRANSFUSION SERVICE 11/29/2017 REPORT - SCAN 5:42 PM DEFECT CUTTER HEMOGLOBIN AND HEMATOCRIT Routine 11/29/2017 5:26 AM DEFECT CUTTER BASIC METABOLIC PANEL (7) Routine 11/29/2017 5:26 AM DEFECT CUTTER TISSUE EXAM AP Routine 11/28/2017 8:58 AM DEFECT CUTTER ANESTHESIA PERIPHERAL Routine 11/28/2017 BLOCK 8:35 AM DEFECT CUTTER ANESTHESIA SPINAL BLOCK Routine 11/28/2017 8:35 AM DEFECT CUTTER ARTHROPLASTY,KNEE 11/28/2017 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 Sodium 134 (L) 136 - 145 meq/L [facility] Potassium 3.9 3.5 - 5.1 meq/L [facility] Chloride 100 98 - 107 meq/L [facility] CO2 22 22 - 29 meq/L [facility] BUN 12 7 - 21 mg/dL [facility] Creatinine 0.77 0.57 - 1.25 mg/dL [facility] Glucose 104 70 - 105 mg/dL [facility] Calcium 9.5 8.4 - 10.2 mg/dL [facility] EGFR 71Comment: ESTIMATED GFR IS mL/min/1.73 sq m [facility] NOT ACCURATE CREATININE [facility] CLEARANCE IN PREDICTING GLOMERULAR FILTRATION RATE. ESTIMATED GFR IS NOT APPLICABLE FOR DIALYSIS PATIENTS. Specimen Blood - Arm, Left Performing Organization Address City/State/Zipcode Phone Number [facility] [address] [place] [address] [facility] * CBC with platelet count + automated diff (12/14/2017 6:19 AM CDT) Only the most recent of 3 results within the time period is included. WBC 8.6 3.5 - 10.5 K/L [facility] RBC 3.44 (L) 3.93 - 5.22 M/L [facility] Hemoglobin 10.2 (L) 11.2 - 15.7 GM/DL [facility] Hematocrit 30.4 (L) 34.1 - 44.9 % [facility] MCV 88.4 79.4 - 94.8 fL [facility] MCH 29.7 25.6 - 32.2 pg [facility] MCHC 33.6 32.2 - 35.5 GM/DL [facility] RDW 13.5 11.7 - 14.4 % [facility] Platelets 414 150 - 450 K/CU MM [facility] MPV 10.2 9.4 - 12.3 fL [facility] nRBC 0 0 - 0 /100 WBC [facility] % Neutros 54 % [facility] % Lymphs 28 % [facility] % Monos 9 % [facility] % Eos 7 % [facility] % Baso 1 % [facility] # Neutros 4.59 1.56 - 6.13 K/L [facility] # Lymphs 2.43 1.18 - 3.74 K/L [facility] # Monos 0.80 (H) 0.24 - 0.36 K/L [facility] # Eos 0.62 (H) 0.04 - 0.36 K/L [facility] # Baso 0.09 (H) 0.01 - 0.08 K/L [facility] Immature 1 0 - 1 % [facility] Granulocytes-Relative [facility] Specimen Blood Performing Organization Address City/State/Zipcode Phone Number [facility] [address] [place] [address] [phone] [place] [address] * Magnesium (12/14/2017 6:19 AM CDT) Only the most recent of 2 results within the time period is included. Magnesium 1.7 1.6 - 2.6 mg/dL [facility] Specimen Blood Performing Organization Address City/[facility]/Zipcode Phone Number [facility] [address] [place] [address] [facility] * PERIPHERAL VASCULAR REPORT - SCAN (12/13/2017 12:20 PM CDT) Narrative Performed At * Venous doppler legs bilateral (12/13/2017 10:30 AM CDT) Ejection Fraction [facility] MKCKESSON CPACS Impressions Performed At Right Impression [facility] 1. There is no deep venous obstruction in the common femoral, profunda [facility] femoral, femoral, popliteal, posterior tibial or [...] PV LAB - Lower Extremities DVT Study [facility] Demographics [facility] Patient NameMORory RUSSELL of Study 12/13/2017 ANGELES Age 87 Visit [id number] GenderFemale Date of 1930 Number Referring Hayde Salvador Room Number 2238 Physician Derrick Hand Tiffany Carter InterpretingJ. Stanley Espinoza RN, Antony [...] Study 12/13/2017 ANGELES Age 87 Visit Number [id number] Gender Female Date of 1930 Number Referring Hayde Salvador Room Number 2238 Physician Derrick Hand Tiffany Carter Interpreting Leticia Espinoza RN, RVT [...] are measured in cm Performing Organization Address City/State/Zipcode Phone Number [facility] * Troponin I (12/13/2017 4:50 AM CDT) Troponin I 0.03 0.00 - 0.03 ng/mL [facility] Specimen Blood Narrative Performed At Troponin I (TnI) levels must be interpreted in the context of the presenting [facility] symptoms and the clinical findings. Elevated TnI levels indicate myocardial [facility] damage, but are not specific for ischemic heart disease. Elevated TnI levels are seen in patients with other cardiac conditions (including myocarditis and congestive heart failure), and slight TnI elevations occur in patients with other conditions, including sepsis, renal failure, acidosis, acute neurological disease, and persistent tachyarrhythmia. Performing Organization Address City/State/Zipcode Phone Number [facility] [address] [place] [address] [facility] * ED ECG Interpretation (12/12/2017 6:13 PM [...] PM CDT) Narrative Performed At FINAL REPORT conXt CT head without contrast. Comparisons: No Reason [...] Performed At Ventricular Rate 100 BPM [employer] Atrial Rate 100 BPM P-R Interval 192 ms QRS Duration 82 ms Q-T Interval 362 ms QTC Calculation(Bazett) 466 ms P Morrill 63 degrees R Morrill -36 degrees T Morrill 16 degrees Sinus rhythm with Premature atrial [...] 362 ms QTC Calculation(Bazett) 466 ms P Morrill 63 degrees R Morrill -36 degrees T Morrill 16 degrees Sinus rhythm with Premature atrial complexes Left axis deviation Minimal voltage criteria for LVH, may be normal variant Abnormal ECG No previous ECGs available Confirmed by Delfino LAM MICHAEL ([id number]) on 12/13/2017 6:46:56 AM Performing Organization Address [facility] Phone Number MUSE * Rapid Troponin I (12/12/2017 2:10 PM CDT) Rapid Troponin I <0.05 <0.05 ng/mL [facility] Specimen Blood - Arm, Right Performing Organization Address [facility] Phone Number [address] [phone] [facility], [facility], [facility] * Rapid CK-MB (12/12/2017 2:10 PM CDT) Rapid CKMB 10.5 (H) 0.0 - 4.3 ng/mL [facility] Specimen Blood - Arm, Right Performing Organization Address [facility] Phone Number [address] [phone] [facility], [facility], [facility] * Lactic acid, venous, whole blood (12/12/2017 2:10 PM CDT) Lactate, Venous 1.3 0.5 - 2.2 mmol/L [facility] Specimen Blood - Arm, Right Narrative Performed At Effective 01/25/2016: Units/Reference Range Change [facility] New: 0.5-2.2 mmol/LPrevious: 5-18 mg/dL [facility], [facility] Performing Organization Address City/State/Zipcode Phone Number [facility] [address] [place], [place] [phone] [facility], [facility] * Blood culture (12/12/2017 2:10 PM CDT) Only the most recent of 2 results within the time period is included. Result No growth in 5 days [facility] Specimen Blood - Arm, Left Performing Organization Address City/State/Zipcode Phone Number [facility] [address] [place], [place] [phone] [facility] * Urinalysis w/Microscopic - Cath (12/12/2017 2:09 PM CDT) Color, UA Yellow [facility] Clarity, UA Clear [facility] Specific Spencer, UA 1.011 1.001 - 1.035 [facility] pH, UA 5.5 5.0 - 8.0 [facility] Protein, UA Negative Negative [facility] Glucose, UA Negative Negative [facility] Ketones, UA Negative Negative [facility] Bilirubin, UA Negative Negative [facility] Blood, UA Negative Negative [facility] Nitrite, UA Negative Negative [facility] Leukocytes, UA Negative Negative [facility] Urobilinogen, UA 0.2 0.2 - 1.0 mg/dL [facility] Bacteria, UA Occasional [facility] RBC, UA <5 /HPF [facility] WBC, UA <5 /HPF [facility] SQUAMOUS EPITHELIAL <5 /HPF [facility], [facility] Specimen Source [facility] Specimen Urine - Urine, Straight Catheter Performing Organization Address City/State/Zipcode Phone Number [facility] [address] [place], [place] [phone] [facility], [facility], [facility] * XR chest 1 view portable / bedside (12/12/2017 2:00 PM CDT) Narrative Performed At FINAL REPORT conXt TECHNIQUE: Frontal chest radiograph dated 12/12/2017. CLINICAL HISTORY: SOB COMPARISON STUDY: None IMPRESSION: Lungs are clear. No pleural effusion or pneumothorax. Cardiomediastinal silhouette is normal in size. No pulmonary edema. Degenerative changes are seen in the spine. No fracture. Signed: Jonna Gallegos MD Report Verified Date/Time:12/12/2017 14:09:49 Reading Location: [facility] Radiology Reading Room Procedure Note Interface, External [...] Report Verified Date/Time: 12/12/2017 14:09:49 Reading Location: [facility] Radiology Reading Room Performing Organization Address City/State/Zipcode Phone Number [facility] * TRANSFUSION SERVICE REPORT - SCAN (12/02/2017 5:41 PM CDT) Only the most recent of 3 results within the time period is included. Narrative Performed At * Prepare Leuko-Red RBC (12/01/2017 11:54 PM CDT) CROSSMATCH COMPATIBLE SAFETRACE TX Unit ABO A Pos SAFETRACE TX UNIT NUMBER [id number] SAFETRACE TX Status TRANSFUSED SAFETRACE TX Blood Bank Product RED BLOOD CELLS SAFETRACE TX PRODUCT CODE [id number] SAFETRACE TX CROSSMATCH COMPATIBLE SAFETRACE TX Unit ABO A Pos SAFETRACE TX UNIT NUMBER [id number] SAFETRACE TX Status TRANSFUSED SAFETRACE TX Blood Bank Product RED BLOOD CELLS SAFETRACE TX PRODUCT CODE [id number] SAFETRACE TX Specimen Other Performing Organization Address City/[facility] Phone Number [place] * Hemoglobin and hematocrit (12/01/2017 4:51 AM CDT) Only the most recent of 4 results within the time period is included. Hemoglobin 9.6 (L) 11.2 - 15.7 GM/DL [facility] Hematocrit 28.0 (L) 34.1 - 44.9 % [facility] Specimen Blood Performing Organization Address City/[facility]/Zipcode Phone Number [place] [phone] [facility] * Transfuse Leuko-Red RBC (11/30/2017 5:08 PM DEFECT CUTTER) Only the most recent of 3 results within the time period is included. * Tissue Exam (11/28/2017 8:58 AM DEFECT CUTTER) Case Report Surgical Pathology [facility] Report [facility] Case: [id number] Authorizing Provider:Hayde Salvador, Collected: 11/28/201758 Ordering Location: [facility] PERIOPERATIVE Received: 11/28/201759 SERVICES Pathologist: Paulino Leigh MD Specimen:Condyle,Right Knee DIAGNOSIS BONE, RIGHT KNEE CONDYLE, [facility] RESECTION: [facility] - OSTEOARTHRITIS - NO EVIDENCE OF MALIGNANCY Signing Pathologist Direct Phone Line: [phone] CPT Code(s) 59741, [address] [facility] CLINICAL HISTORY Primary osteoarthritis of [facility] right knee [facility] SPECIMEN SOURCE Right knee condyle [facility] GROSS DESCRIPTION The specimen is received in a [facility] formalin-filled container and [facility] labeled with the patient's information [...] decalcification. CG/pl MICROSCOPIC DESCRIPTION The sections show [facility] reduplication of the [facility] with eburnation and osteophyte formation. Specimen Tissue - Condyle,Right Knee Performing Organization Address City/State/Zipcode Phone Number [facility] [address] [place] [address] [facility] * ANESTHESIA PERIPHERAL BLOCK (11/28/2017 8:35 AM DEFECT CUTTER) Narrative Performed At Manolo Wong MD 11/28/20178:35 [...] supine Prep: ChloraPrep Patient monitoring: heart rate, environmental monitoring technician and continuous pulse ox Block type: Adductor [...] Manolo Wong MD - 11/28/2017 8:26 AM DEFECT CUTTER Peripheral Block Patient location during procedure: pre-op [...] supine Prep: ChloraPrep Patient monitoring: heart rate, environmental monitoring technician and continuous pulse ox Block type: Adductor [...] * ANESTHESIA SPINAL BLOCK (11/28/2017 8:35 AM DEFECT CUTTER) Narrative Performed At Manolo Wong MD 11/28/20178:35 [...] sitting Prep: Betadine Patient monitoring: heart rate, environmental monitoring technician and continuous pulse ox Approach: midline Location: L3-4 Injection technique: single-shot Needle Needle type: pencil-tip Needle gauge: 25 G Needle length: 13 cm Assessment Sensory level: T10 Events: cerebrospinal fluid Procedure Note Manolo Wong MD - 11/28/2017 8:26 AM DEFECT CUTTER Spinal Block Patient location during procedure: Block [...] sitting Prep: Betadine Patient monitoring: heart rate, environmental monitoring technician and continuous pulse ox Approach: midline Location: L3-4 Injection technique: single-shot Needle Needle type: pencil-tip Needle gauge: 25 G Needle length: 13 cm Assessment Sensory level: T10 Events: cerebrospinal fluid * Type and screen, automated (11/28/2017 6:20 AM DEFECT CUTTER) ABO/RH AUTOMATED (BEAKER) A POSITIVE [facility] Ab Scrn NEGATIVE [facility] Specimen Blood Performing Organization Address City/[facility] Phone Number [place] [phone] * BUN and Creatinine (11/28/2017 6:20 AM DEFECT CUTTER) BUN 23 (H) 7 - 21 mg/dL [facility] Creatinine 0.98Comment: Specimen slightly 0.57 - 1.25 mg/dL [facility] hemolyzed [facility] EGFR 54Comment: ESTIMATED GFR IS mL/min/1.73 sq m [facility] NOT ACCURATE CREATININE [facility] CLEARANCE IN PREDICTING GLOMERULAR FILTRATION RATE. ESTIMATED GFR IS NOT APPLICABLE FOR DIALYSIS PATIENTS. Specimen Blood Performing Organization Address City/[facility]/Zipcode Phone Number [address] [address] [facility] * Platelet count (11/28/2017 6:20 AM DEFECT CUTTER) Platelets 240 150 - 450 K/CU MM [facility] Specimen Blood Performing Organization Address City/[facility] Phone Number [address] [address] [phone] [place] [address] * Hemoglobin (11/28/2017 6:20 AM DEFECT CUTTER) Hemoglobin 11.1 (L) 11.2 - 15.7 GM/DL [facility] Specimen Blood Performing Organization Address City/[facility] Phone Number [facility] [address] [place] [address] [facility] * Electrolytes (11/28/2017 6:20 AM DEFECT CUTTER) Sodium 133 (L) 136 - 145 meq/L [facility] Potassium 4.3Comment: Specimen slightly 3.5 - 5.1 meq/L [facility] hemolyzed [facility] Chloride 101 98 - 107 meq/L [facility] CO2 22 22 - 29 meq/L [facility] Specimen Blood Performing Organization Address [facility] Phone Number [address] [address] [phone] [place] [address] after 10/30/2017 Insurance Payer Benefit Subscriber ID Type Phone Address Plan / Group [employer] [facility] [facility] Advance Directives For more information, please contact: [address] [address] Date Inactivated Comments Code Status Date Activated 12/14/2017 1:56 PM Full Code 12/13/2017 3:55 AM This code status was determined by: Patient 12/01/2017 3:48 PM Full Code 11/28/2017 5:06 AM This code status was determined by: Patient
[2018-10-31] MEDS ORDERED: SODIUM CHLORIDE 0.9% 500ML 500 ML IV ONE ×2 (10:15→11:15)
--- NOTE | 2018-10-31 10:38 | Diagnostic Imaging Report ---
EXAMINATION: CXR 2 VIEW - HOPD INDICATION: Dizziness COMPARISON: None FINDINGS: TUBES and LINES: None. LUNGS: Lungs are well inflated. Lungs are clear. There is no evidence of pneumonia or pulmonary edema. PLEURA: No pleural effusion or pneumothorax. HEART AND MEDIASTINUM: The cardiomediastinal silhouette is unremarkable. Atherosclerotic calcifications of the aortic arch. BONES AND SOFT TISSUES: No acute osseous lesion. Soft tissues are unremarkable. UPPER ABDOMEN: No free air under the diaphragm. IMPRESSION: No acute radiographic abnormality. Signed by: Dr. Thelma Alcala MD on 10/31/2018 10:34 AM
--- NOTE | 2018-10-31 10:45 | Diagnostic Imaging Report ---
CT BRAIN [facility] HISTORY: Dizziness COMPARISON: Head CT 07/25/2018 Technique: Noncontrast axial scans were obtained from skull base to the vertex. Coronal and sagittal reconstructions obtained from the axial data. One or more of the following dose reduction techniques were used: Automated exposure control, adjustment of the mA and/or kV according to patient size, and/or utilization of iterative reconstruction technique. DISCUSSION: Scalp/Skull: Unremarkable. Brain sulci: Mildly prominent. Ventricles: Compensatory dilatation. Extra-axial spaces: No masses or fluid collections. Carotid siphon and vertebral artery calcifications are present. Parenchyma: Moderate bilateral deep white matter hypodensity is likely chronic microvascular ischemic change. Otherwise, no masses, hemorrhage, or large vascular territory acute infarct. Dural sinuses: No abnormal densities. Sellar/Suprasellar region: Intact. Skull base: Intact. Incidental findings: Both ocular lenses are thinned. IMPRESSION: 1. No acute intracranial abnormalities. 2. Moderate supratentorial chronic microvascular ischemic change. Mild generalized cerebral volume loss. Signed by: Dr. Juan Steward M.D. on 10/31/2018 10:41 AM
[2018-10-31] MEDS ORDERED: MECLIZINE HCL 12.5 MG TAB PO ONE (11:15)
[2018-10-31] MEDS ORDERED: ONDANSETRON HCL INJ 2MG/ML 2ML 2 MG/ML VIAL IV PRN (11:15)
--- NOTE | 2018-10-31 11:21 | NUR ---
pt and family updated plan of care.
--- OUTSIDE RECORDS SUMMARY | 2018-10-31 11:32 | XMS REPORT | Clinical Summary ---
Author Author ADELA [facility] Address Unknown Phone Unavailable Care Team Providers Care Clinical Recruiter Name Role Phone Sharpless PCP Allergies Comments Active Allergy Reactions Severity Noted Date Nightmares Baclofen 06/26/2016 Hallucinations ,constipation as per daughter (Barbara) Codeine Other (See 12/23/2014 Comments) Nightmares Etodolac Low 06/26/2016 Conjunctivitis as per [facility] [place] Timolol Maleate Other (See 12/12/2017 [...] Area Manufactur er 02/21/2020 6191-1-001 / / [id number] Cement Bone Surg Smplx P Full Cement/Fredy Right: Knee BETO:ST 6191-1-001 - [id number]/Adhesi BRIDGER Implanted: Qty: 2 on 11/28/2017 by Hayde Gallego MD 08/29/2022 5551-G-320 / / [id number] Patella Tri Asymmetric [id number] Joints Right: Knee BETO:ST 5551-G-320 - [id number] BRIDGER Implanted: Qty: 1 on 11/28/2017 by Hayde Jonas MD 04/17/2022 5530-G-409 / / [id number] Insrt Tib #4 9mm 5530-G-409 - Joints Right: Knee BETO:ST [id number] BRIDGER Implanted: Qty: 1 on 11/28/2017 by Hayde Jonas MD 07/04/2022 5510-F-302 / / [id number] Comp Femoral #3 R 5510-F-302 - Joints Right: Knee BETO:ST [id number] BRIDGER Implanted: Qty: 1 on 11/28/2017 by Hayde Jonas MD 07/22/2022 [id number]-400 / / [id number] Baseplt Tri Ts 4 5521-[id number]-400 - Joints Right: Knee BETO:ST [id number] BRIDGER Implanted: Qty: 1 on 11/28/2017 by [...] ms QTC Calculatio n(Bazett) 466 ms P [place] 63 degrees R [place] -36 degrees T [place] 16 degrees Sinus rhythm with Premature atrial [...] HEMOGLOBIN AND HEMATOCRIT Routine 11/30/2017 6:00 PM BALANCE BRIDGE INSPECTOR TRANSFUSE LEUKO-REDUCED Routine 11/30/2017 RED BLOOD CELLS 5:08 PM BALANCE BRIDGE INSPECTOR TRANSFUSE LEUKO-REDUCED Routine 11/30/2017 RED BLOOD CELLS 12:48 PM BALANCE BRIDGE INSPECTOR HEMOGLOBIN AND HEMATOCRIT Routine 11/30/2017 4:36 AM BALANCE BRIDGE INSPECTOR BASIC METABOLIC PANEL (7) Routine 11/30/2017 4:36 AM BALANCE BRIDGE INSPECTOR TRANSFUSION SERVICE 11/29/2017 REPORT - SCAN 5:42 PM BALANCE BRIDGE INSPECTOR HEMOGLOBIN AND HEMATOCRIT Routine 11/29/2017 5:26 AM BALANCE BRIDGE INSPECTOR BASIC METABOLIC PANEL (7) Routine 11/29/2017 5:26 AM BALANCE BRIDGE INSPECTOR TISSUE EXAM AP Routine 11/28/2017 8:58 AM BALANCE BRIDGE INSPECTOR ANESTHESIA PERIPHERAL Routine 11/28/2017 BLOCK 8:35 AM BALANCE BRIDGE INSPECTOR ANESTHESIA SPINAL BLOCK Routine 11/28/2017 8:35 AM BALANCE BRIDGE INSPECTOR ARTHROPLASTY,KNEE 11/28/2017 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 INSPECTOR right knee Case Notes PERCERT RECVD Special Needs (SPINAL/EP IDURAL W/ADDUCTOR CANAL BLOCK, BETO TRIATHLON) TYPE AND SCREEN, Routine 11/28/2017 AUTOMATED 6:20 AM BALANCE BRIDGE INSPECTOR BUN AND CREATININE STAT 11/28/2017 6:20 AM BALANCE BRIDGE INSPECTOR ELECTROLYTE PANEL STAT 11/28/2017 6:20 AM BALANCE BRIDGE INSPECTOR PLATELET COUNT STAT 11/28/2017 6:20 AM BALANCE BRIDGE INSPECTOR HEMOGLOBIN STAT 11/28/2017 6:20 AM BALANCE BRIDGE INSPECTOR after 10/30/2017 Results * RHYTHM STRIP - SCAN (12/16/2017 2:09 PM CDT) Narrative Performed At * Basic Metabolic Panel (12/14/2017 9:27 AM CDT) Only the most recent of 7 results within the time period is included. Sodium 134 (L) 136 - 145 meq/L [facility] Potassium 3.9 3.5 - 5.1 meq/L [facility] Chloride 100 98 - 107 meq/L [facility] CO2 22 22 - 29 meq/L [facility] BUN 12 7 - 21 mg/dL [facility] Creatinine 0.77 0.57 - 1.25 mg/dL [facility] Glucose 104 70 - 105 mg/dL [facility] Calcium 9.5 8.4 - 10.2 mg/dL [facility] EGFR 71Comment: ESTIMATED GFR IS mL/min/1.73 sq m [facility] NOT ACCURATE CREATININE [facility] CLEARANCE IN PREDICTING GLOMERULAR FILTRATION RATE. ESTIMATED GFR IS NOT APPLICABLE FOR DIALYSIS PATIENTS. Specimen Blood - Arm, Left Performing Organization Address City/State/Zipcode Phone Number [facility] [address] [place] [address] [facility] [place] * CBC with platelet count + automated diff (12/14/2017 6:19 AM CDT) Only the most recent of 3 results within the time period is included. WBC 8.6 3.5 - 10.5 K/L [facility] RBC 3.44 (L) 3.93 - 5.22 M/L [facility] Hemoglobin 10.2 (L) 11.2 - 15.7 GM/DL [facility] Hematocrit 30.4 (L) 34.1 - 44.9 % [facility] MCV 88.4 79.4 - 94.8 fL [facility] MCH 29.7 25.6 - 32.2 pg [facility] MCHC 33.6 32.2 - 35.5 GM/DL [facility] RDW 13.5 11.7 - 14.4 % [facility] Platelets 414 150 - 450 K/CU MM [facility] MPV 10.2 9.4 - 12.3 fL [facility] nRBC 0 0 - 0 /100 WBC [facility] % Neutros 54 % [facility] % Lymphs 28 % [facility] % Monos 9 % [facility] % Eos 7 % [facility] % Baso 1 % [facility] # Neutros 4.59 1.56 - 6.13 K/L [facility] # Lymphs 2.43 1.18 - 3.74 K/L [facility] # Monos 0.80 (H) 0.24 - 0.36 K/L [facility] # Eos 0.62 (H) 0.04 - 0.36 K/L [facility] # Baso 0.09 (H) 0.01 - 0.08 K/L [facility] Immature 1 0 - 1 % [facility] Granulocytes-Relative [facility] Specimen Blood Performing Organization Address City/State/Zipcode Phone Number [facility] [address] [place] [address] [phone] [place] [address] * Magnesium (12/14/2017 6:19 AM CDT) Only the most recent of 2 results within the time period is included. Magnesium 1.7 1.6 - 2.6 mg/dL [facility] Specimen Blood Performing Organization Address City/[facility]/Zipcode Phone Number [facility] [address] [place] [address] [facility] * PERIPHERAL VASCULAR REPORT - SCAN (12/13/2017 12:20 PM CDT) Narrative Performed At * Venous doppler legs bilateral (12/13/2017 10:30 AM CDT) Ejection Fraction [facility] MKCKESSON CPACS Impressions Performed At Right Impression [facility] 1. There is no deep venous obstruction in the common femoral, profunda [facility] femoral, femoral, popliteal, posterior tibial or [...] PV LAB - Lower Extremities DVT Study [facility] Demographics [facility] Patient NameMORory RUSSELL of Study 12/13/2017 ANGELES Age 87 Visit [id number] GenderFemale Date of 1930 Number Referring Hayde Salvador Room Number 2238 Physician Paint Process Engineer Tiffany Carter InterpretingJ. Stanley Espinoza RN, Antony [...] Study 12/13/2017 ANGELES Age 87 Visit Number [id number] Gender Female Date of 1930 Number Referring Hayde Salvador Room Number 2238 Physician Paint Process Engineer Tiffany Carter Interpreting Leticia Espinoza RN, RVT [...] Troponin I 0.03 0.00 - 0.03 ng/mL [facility] Specimen Blood Narrative Performed At Troponin I (TnI) levels must be interpreted in the context of the presenting [facility] symptoms and the clinical findings. Elevated TnI levels indicate myocardial [facility] damage, but are not specific for ischemic heart disease. Elevated TnI levels are seen in patients with other cardiac conditions (including myocarditis and congestive heart failure), and slight TnI elevations occur in patients with other conditions, including sepsis, renal failure, acidosis, acute neurological disease, and persistent tachyarrhythmia. Performing Organization Address City/State/Zipcode Phone Number [facility] [address] [place] [address] [facility] * ED ECG Interpretation (12/12/2017 6:13 PM [...] PM CDT) Narrative Performed At FINAL REPORT [employer] CT head without contrast. Comparisons: No Reason [...] Performed At Ventricular Rate 100 BPM GE [employer] Atrial Rate 100 BPM P-R Interval 192 ms QRS Duration 82 ms Q-T Interval 362 ms QTC Calculation(Bazett) 466 ms P [place] 63 degrees R [place] -36 degrees T [place] 16 degrees Sinus rhythm with Premature atrial [...] 362 ms QTC Calculation(Bazett) 466 ms P [place] 63 degrees R [place] -36 degrees T [place] 16 degrees Sinus rhythm with Premature atrial complexes Left axis deviation Minimal voltage criteria for LVH, may be normal variant Abnormal ECG No previous ECGs available Confirmed by Delfino LAM MICHAEL ([id number]) on 12/13/2017 6:46:56 AM Performing Organization Address [facility] Phone Number MUSE * Rapid Troponin I (12/12/2017 2:10 PM CDT) Rapid Troponin I <0.05 <0.05 ng/mL [facility] [place] Specimen Blood - Arm, Right Performing Organization Address [facility] Phone Number [address] [phone] [facility] * Rapid CK-MB (12/12/2017 2:10 PM CDT) Rapid CKMB 10.5 (H) 0.0 - 4.3 ng/mL [facility] [place] Specimen Blood - Arm, Right Performing Organization Address [facility] Phone Number [address] [phone] [facility] * Lactic acid, venous, whole blood (12/12/2017 2:10 PM CDT) Lactate, Venous 1.3 0.5 - 2.2 mmol/L [facility] [place] Specimen Blood - Arm, Right Narrative Performed At Effective 01/25/2016: Units/Reference Range Change [facility] New: 0.5-2.2 mmol/LPrevious: 5-18 mg/dL [facility] [place] Performing Organization Address City/State/Zipcode Phone Number [facility] [address] [place], [place] [phone] [facility] [place] * Blood culture (12/12/2017 2:10 PM CDT) Only the most recent of 2 results within the time period is included. Result No growth in 5 days [facility] Specimen Blood - Arm, Left Performing Organization Address City/State/Zipcode Phone Number [facility] [address] [place], [place] [phone] [facility] * Urinalysis w/Microscopic - Cath (12/12/2017 2:09 PM CDT) Color, UA Yellow [facility] [place] Clarity, UA Clear [facility] Specific [place], UA 1.011 1.001 - 1.035 [facility] [place] pH, UA 5.5 5.0 - 8.0 [facility] [place] Protein, UA Negative Negative [facility] Glucose, UA Negative Negative [facility] [place] Ketones, UA Negative Negative [facility] Bilirubin, UA Negative Negative [facility] [place] Blood, UA Negative Negative [facility] [place] Nitrite, UA Negative Negative [facility] Leukocytes, UA Negative Negative [facility] [place] Urobilinogen, UA 0.2 0.2 - 1.0 mg/dL [facility] Bacteria, UA Occasional [facility] [place] RBC, UA <5 /HPF [facility] [place] WBC, UA <5 /HPF [facility] [place] SQUAMOUS EPITHELIAL <5 /HPF [facility] [place] Specimen Source [facility] [place] Specimen Urine - Urine, Straight Catheter Performing Organization Address City/State/Zipcode Phone Number [facility] [address] [place], [place] [phone] [facility] [place] * XR chest 1 view portable / bedside (12/12/2017 2:00 PM CDT) Narrative Performed At FINAL REPORT [employer] TECHNIQUE: Frontal chest radiograph dated 12/12/2017. CLINICAL HISTORY: SOB COMPARISON STUDY: None IMPRESSION: Lungs are clear. No pleural effusion or pneumothorax. Cardiomediastinal silhouette is normal in size. No pulmonary edema. Degenerative changes are seen in the spine. No fracture. Signed: Jonna Gallegos MD Report Verified Date/Time:12/12/2017 14:09:49 Reading Location: [facility] Radiology Reading Room Procedure Note Interface, External [...] Report Verified Date/Time: 12/12/2017 14:09:49 Reading Location: [facility] Radiology Reading Room Performing Organization Address City/State/Zipcode Phone Number [phone] * TRANSFUSION SERVICE REPORT - SCAN (12/02/2017 5:41 PM CDT) Only the most recent of 3 results within the time period is included. Narrative Performed At * Prepare Leuko-Red RBC (12/01/2017 11:54 PM CDT) CROSSMATCH COMPATIBLE SAFETRACE TX Unit ABO A Pos SAFETRACE TX UNIT NUMBER [id number] SAFETRACE TX Status TRANSFUSED SAFET[facility]ACE TX Blood Bank Product RED BLOOD CELLS SAFETRACE TX PRODUCT CODE [id number] SAFETRACE TX CROSSMATCH COMPATIBLE SAFETRACE TX Unit ABO A Pos SAFETRACE TX UNIT NUMBER [id number] SAFETRACE TX Status TRANSFUSED SAFETRACE TX Blood Bank Product RED BLOOD CELLS SAFETRACE TX PRODUCT CODE [id number] SAFETRACE [place] Specimen Other Performing Organization Address City/[facility] Phone Number [place] * Hemoglobin and hematocrit (12/01/2017 4:51 AM CDT) Only the most recent of 4 results within the time period is included. Hemoglobin 9.6 (L) 11.2 - 15.7 GM/DL [facility] Hematocrit 28.0 (L) 34.1 - 44.9 % [facility] Specimen Blood Performing Organization Address City/[facility]/Zipcode Phone Number [place] [phone] [facility] * Transfuse Leuko-Red RBC (11/30/2017 5:08 PM BALANCE BRIDGE INSPECTOR) Only the most recent of 3 results within the time period is included. * Tissue Exam (11/28/2017 8:58 AM BALANCE BRIDGE INSPECTOR) Case Report Surgical Pathology [facility] Report [facility] Case: [id number] Authorizing Provider:Hayde Salvador, Collected: 11/28/201758 Ordering Location: [facility] PERIOPERATIVE Received: 11/28/201759 SERVICES Pathologist: Paulino Leigh MD Specimen:Condyle,Right Knee DIAGNOSIS BONE, RIGHT KNEE [place], [facility] RESECTION: [facility] - OSTEOARTHRITIS - NO EVIDENCE OF MALIGNANCY Signing Pathologist Direct Phone Line: [phone] CPT Code(s) 70637, [address]51 [facility] CLINICAL HISTORY Primary osteoarthritis of [facility] right knee [facility] SPECIMEN SOURCE Right knee condyle [facility] GROSS DESCRIPTION The specimen is received in a [facility] formalin-filled container and [facility] labeled with the patient's information labeled with [...] decalcification. CG/pl MICROSCOPIC DESCRIPTION The sections show [facility] reduplication of the [facility] with eburnation and osteophyte formation. Specimen Tissue - Condyle,Right Knee Performing Organization Address City/State/Zipcode Phone Number [facility] [address] [place] [address] [facility] * ANESTHESIA PERIPHERAL BLOCK (11/28/2017 8:35 AM BALANCE BRIDGE INSPECTOR) Narrative Performed At Manolo Wong MD 11/28/20178:35 [...] supine Prep: ChloraPrep Patient monitoring: heart rate, social services assistant and continuous pulse ox Block type: Adductor [...] Manolo Wong MD - 11/28/2017 8:26 AM BALANCE BRIDGE INSPECTOR Peripheral Block Patient location during procedure: pre-op [...] supine Prep: ChloraPrep Patient monitoring: heart rate, social services assistant and continuous pulse ox Block type: Adductor [...] * ANESTHESIA SPINAL BLOCK (11/28/2017 8:35 AM BALANCE BRIDGE INSPECTOR) Narrative Performed At Manolo Wong MD 11/28/20178:35 [...] sitting Prep: Betadine Patient monitoring: heart rate, social services assistant and continuous pulse ox Approach: midline Location: L3-4 Injection technique: single-shot Needle Needle type: pencil-tip Needle gauge: 25 G Needle length: 13 cm Assessment Sensory level: T10 Events: cerebrospinal fluid Procedure Note Manolo Wong MD - 11/28/2017 8:26 AM BALANCE BRIDGE INSPECTOR Spinal Block Patient location during procedure: Block [...] sitting Prep: Betadine Patient monitoring: heart rate, social services assistant and continuous pulse ox Approach: midline Location: L3-4 Injection technique: single-shot Needle Needle type: pencil-tip Needle gauge: 25 G Needle length: 13 cm Assessment Sensory level: T10 Events: cerebrospinal fluid * Type and screen, automated (11/28/2017 6:20 AM BALANCE BRIDGE INSPECTOR) ABO/RH AUTOMATED (BEAKER) A POSITIVE [facility] Ab Scrn NEGATIVE [facility] Specimen Blood Performing Organization Address City/[facility] Phone Number [place] [phone] * BUN and Creatinine (11/28/2017 6:20 AM BALANCE BRIDGE INSPECTOR) BUN 23 (H) 7 - 21 mg/dL [facility] Creatinine 0.98Comment: Specimen slightly 0.57 - 1.25 mg/dL [facility] hemolyzed [facility] EGFR 54Comment: ESTIMATED GFR IS mL/min/1.73 sq m [facility] NOT ACCURATE CREATININE [facility] CLEARANCE IN PREDICTING GLOMERULAR FILTRATION RATE. ESTIMATED GFR IS NOT APPLICABLE FOR DIALYSIS PATIENTS. Specimen Blood Performing Organization Address City/[facility]/Zipcode Phone Number [address] [address] [facility] * Platelet count (11/28/2017 6:20 AM BALANCE BRIDGE INSPECTOR) Platelets 240 150 - 450 K/CU MM [facility] Specimen Blood Performing Organization Address City/[facility] Phone Number [address] [address] [phone] [place] [address] * Hemoglobin (11/28/2017 6:20 AM BALANCE BRIDGE INSPECTOR) Hemoglobin 11.1 (L) 11.2 - 15.7 GM/DL [facility] Specimen Blood Performing Organization Address City/[facility] Phone Number [facility] [address] [place] [address] [facility] * Electrolytes (11/28/2017 6:20 AM BALANCE BRIDGE INSPECTOR) Sodium 133 (L) 136 - 145 meq/L [facility] Potassium 4.3Comment: Specimen slightly 3.5 - 5.1 meq/L [facility] hemolyzed [facility] Chloride 101 98 - 107 meq/L [facility] CO2 22 22 - 29 meq/L [facility] Specimen Blood Performing Organization Address [facility] Phone Number [address] [address] [phone] [place] [address] after 10/30/2017 Insurance Payer Benefit Subscriber ID Type Phone Address Plan / Group [employer]AN[employer] TEXAN[employer]US xxxxxxxxx [facility] Cont[facility] Advance Directives For more information, please contact: [address] [address] Date Inactivated Comments Code Status Date Activated 12/14/2017 1:56 PM Full Code 12/13/2017 3:55 AM This code status was determined by: Patient 12/01/2017 3:48 PM Full Code 11/28/2017 5:06 AM This code status was determined by: Patient
--- NOTE | 2018-10-31 12:28 | NUR ---
[facility] ems called for transport.
--- NOTE | 2018-10-31 12:30 | NUR ---
calling report to [phone]
--- NOTE | 2018-10-31 12:50 | NUR ---
REPORT TO EMS
[2018-10-31 14:00] VITALS: BP 168/73
[2018-10-31] MEDS ORDERED: LORAZEPAM INJ 2 MG/ML VIAL IV ONE (14:15)
[2018-10-31 14:17] VITALS: BP 168/73
[2018-10-31 14:31] VITALS: BP 168/73
--- NOTE | 2018-10-31 14:43 | NUR ---
patient to MRI. medicated with ativan 1mg prior to MRI transport. daughter at BS. see admit assess. patient very nervous and anxious.
--- NOTE | 2018-10-31 15:49 | Diagnostic Imaging Report ---
MRI BRAIN WO HISTORY: Ataxia, dizziness COMPARISON: Head CT 10/31/2018 TECHNIQUE: Sagittal T2, axial T2, axial T1, axial T2/FLAIR, axial gradient echo (or susceptibility weighted), coronal T2/FLAIR, and axial diffusion weighted MR images of the brain were obtained without contrast. Motion artifacts obscure some details. DISCUSSION: Scalp/bone marrow: Unremarkable. Brain sulci: Mildly prominent, especially the sylvian fissures. Ventricles: Moderate supratentorial ventriculomegaly is slightly are proportional sulcal prominence. Extra-axial spaces: No masses or fluid collections. Parenchyma: Confluent T2/FLAIR hyperintensity is seen in the bilateral periventricular white matter. 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 Otherwise, no mass, hemorrhage, or acute vascular insults. Vessels: Normal flow voids in major arteries and veins. Sellar/Suprasellar region: No abnormalities. Craniocervical junction: No abnormalities. Incidental findings: Both ocular lenses are thinned. IMPRESSION: 1. Moderate supratentorial ventriculomegaly is slightly out of proportion to sulcal prominence. Correlate for communicating hydrocephalus (i.e. normal pressure hydrocephalus). 2. Confluent bilateral periventricular white matter T2/FLAIR hyperintensity may be due to transependymal CSF flow and/or chronic microvascular ischemic change. 3. Otherwise, no acute intracranial abnormalities. 4. Mild generalized cerebral volume loss. 5. 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 Signed by: Dr. Juan Steward M.D. on 10/31/2018 3:45 PM
--- NOTE | 2018-10-31 18:16 | Diagnostic Imaging Report ---
Radiographs of the left shoulder - 2 views HISTORY: Pain COMPARISON: None available. FINDINGS: Bones: No acute displaced fracture. Osseous alignment is within normal limits. Joints: Scattered degenerative change. No osseous erosion. Soft tissues: The soft tissues appear unremarkable. IMPRESSION: Scattered degenerative change. No osseous erosion. Signed by: Dr. Kedar Blanchard M.D. on 10/31/2018 6:12 PM
[2018-10-31 20:10] VITALS: BP 135/65
--- NOTE | 2018-10-31 22:47 | NUR ---
The patient states that she is starting to feel really restless and will have a anxiety attack if she does not get her medicine. She states she usually take 1mg of Klonopin at night and Tylenol for pain. I called Dr. Lai since there are no orders on her emar. He gave me orders to start those medications.
[2018-10-31] MEDS: CLONAZEPAM 1 MG TAB PO PRN (23:29)
[2018-10-31] MEDS: ACETAMINOPHEN 325 MG TAB PO PRN (23:29)
[2018-11-01] VITALS (8 sets, daily range): BP systolic 133–152; BP diastolic 65–75
[2018-11-01 05:25] LABS: BASOPHILS # (AUTO) 0.1 (0.0-0.1); EOSINOPHILS # (AUTO) 0.4 (0.0-0.4); HEMATOCRIT 32.1 % (34.2-44.1); HEMOGLOBIN 10.3 g/dL (12.0-16.0); LYMPHOCYTES # (AUTO) 1.3 (1.0-3.2); LYMPHOCYTES % 21.3 % (18.0-39.1); MEAN CORPUSCULAR HEMOGLOBIN 30.1 pg (28-32); MEAN CORPUSCULAR HGB CONC 32.1 g/dL (31-35); MEAN CORPUSCULAR VOLUME 93.9 fL (81-99); MONOCYTES # (AUTO) 0.8 (0.2-0.8); MONOCYTES % 12.9 % (4.4-11.3); NEUTROPHILS # (AUTO) 3.7 (2.1-6.9); NEUTROPHILS % 58.5 % (38.7-80.0); PLATELET COUNT 215 x10e3/uL (140-360); RED BLOOD COUNT 3.42 x10e6/uL (3.6-5.1); RED CELL DISTRIBUTION WIDTH 13.8 % (11.7-14.4)
[2018-11-01 05:37] LABS: INR 0.93; PARTIAL THROMBOPLASTIN TIME 30.8 seconds (23.8-35.5); PROTHROMBIN TIME 13.3 seconds (11.9-14.5)
[2018-11-01 05:50] LABS: BLOOD UREA NITROGEN 20 mg/dL (7-26); BUN/CREATININE RATIO 24 (6-25); CALCIUM 9.3 mg/dL (8.4-10.2); CARBON DIOXIDE 21 mmol/L (22-29); CHLORIDE 109 mmol/L (98-107); CHOL/HDL RATIO 2.6 (3.0-3.6); CHOLESTEROL 115 MD/DL (0-199); CREATININE, SERUM 0.85 mg/dL (0.57-1.11); EST GLOMERULAR FILTRATION RATE > 60 ML/MIN (60-); GLUCOSE 91 mg/dL (74-118); HDL CHOLESTEROL 45 MG/DL (40-60); LDL CHOLESTEROL 52 MG/DL (60-130); SODIUM 140 mmol/L (136-145); TRIGLYCERIDES 89 MG/DL (0-149)
[2018-11-01] MEDS: ACETAMINOPHEN 325 MG TAB PO PRN (07:10)
[2018-11-01 09:31] LABS: CLARITY,URINE SL CLOUDY (CLEAR); COLOR,URINE YELLOW (YELLOW)
[2018-11-01 09:32] LABS: BILIRUBIN,URINE NEGATIVE (NEGATIVE); KETONES,URINE NEGATIVE (NEGATIVE); LEUKOCYTE ESTERASE ,URINE 1+ (NEGATIVE); NITRITE,URINE POSITIVE (NEGATIVE); PROTEIN,URINE DIPSTICK TRACE (NEGATIVE); URINE UROBILINOGEN 0.2 mg/dL (0.2 - 1)
[2018-11-01 09:39] LABS: BACTERIA,URINE MANY /HPF; EPITHELIAL CELLS,URINE FEW /LPF; MUCUS,URINE FEW (RARE); RBC,URINE 0-5 /HPF (0-5); WBC,URINE (MAN) >50 /HPF (0-5)
[2018-11-01] MEDS: CEFTRIAXONE SOD 1 GM/NS 50 ML 50 ML IV SCH (10:45)
--- NOTE | 2018-11-01 11:34 | NUR ---
COMPASS OPERATOR INITIAL ASSESSMENT Office Admin to bedside to discuss plan of care with patient/family. CM/SW role and care transitions discussed. Anticipated discharge plan discussed along with duration of care. CM/SW discussed patients right to make decisions in care. CM/SW work hours given. Patient lives: IN [facility] ALONE Admit/Transfer: FROM ED POA/Emergency contact: DAUGHTER: ZAIN TIRADO [phone] Current/Previous Home Health: NO PCP/Follow-up Care: DR. BOLAÑOS [facility] Current/Previous DME: [facility] Other Services: NONE Employment Status: RETIRED Areas of Concerns: NONE AT THIS TIME Referral Needs: NONE Education Needs: NONE IMM/FONSECA given and signed (if applicable): FONSECA Goal for discharge:TO RETURN HOME INDEPENDENTLY CM/SW left business card at the bedside with contact information. Name and number was also written on the patients whiteboard. Patient verbalized understanding of discussion. CM will follow-up with ongoing discharge and transition of care needs.
--- NOTE | 2018-11-01 16:35 | Consultation ---
DATE OF CONSULTATION: November 01, 2018 NEUROLOGY CONSULT NOTE HISTORY OF PRESENT ILLNESS: Ms. Gabriel is an 88-year-old right hand dominant woman with past medical history significant for hypertension, dyslipidemia, urinary incontinence, and multiple urinary tract infections, admitted to [facility] on October 31, 2018 with dizziness. On the day of admission, the patient experienced the abrupt onset of dizziness, which is described as a mixture of vertigo and lightheadedness, poor balance, and difficulty walking. Ms. Gabriel reports the dizziness is exacerbated by movement. Specifically, movement in any direction exacerbates the dizziness. The dizziness does not occur if the patient remains still. Ms. Gabriel does not report blurred vision or other visual deficits, nausea, or vomiting associated with the above symptoms. Ms. Gabriel does not report ear pain or fullness, loss of hearing, tinnitus, or drainage from either ear. She does not report dysarthria, aphasia, numbness or tingling, or confusion. Ms. Gabriel does report weakness, which she describes as generalized. Ms. Gabriel has experienced similar symptoms previously, only the symptoms were milder. Her primary care physician treated her with meclizine. While in [facility], Ms. Gabriel has undergone neuroimaging studies. These studies has revealed a ventriculomegaly and other findings suspicious for normal pressure hydrocephalus. The neurology service is consulted to determine whether or not the patient has normal pressure hydrocephalus. Neither the patient nor her daughter, who is at the bedside, endorse memory loss or other cognitive impairment. Prior to yesterday, Ms. Gabriel had no impairments of gait or poor balance. The patient does have a history of urinary incontinence, but this has been present for years. Recently, the urinary incontinence has improved following the patient's most recent bladder sling. REVIEW OF SYSTEMS: Burning with urination, generalized weakness, impairment of balance and gait, dizziness. Otherwise, a 12-point review of systems is negative. PAST MEDICAL HISTORY: Hypertension, dyslipidemia, multiple urinary tract infections, urinary incontinence, and glaucoma. PAST SURGICAL HISTORY: Bladder suspension x3, bladder sling x1, bilateral knee replacements, right hip replacement, partial hysterectomy, cholecystectomy, bilateral cataract removal. PAST HOSPITALIZATIONS: Surgeries/procedures as listed, childbirth x3. FAMILY MEDICAL HISTORY: The patient's paternal and maternal grandparents are . Their medical histories are unknown. The patient's father is from natural causes. Ms. Gabriel's mother from breast cancer. Ms. Gabriel had 6 siblings, all of whom are . One sister from breast cancer. A brother from coronary artery disease with myocardial infarction. The remaining medical histories/causes of for the other siblings are not known. Ms. Gabriel has 3 children, 1 son and 2 daughters, all of whom are alive and healthy. SOCIAL HISTORY: Ms. Gabriel is . She lives alone. The patient is retired. She does not report current or prior tobacco, alcohol, or recreational drug use. HOME MEDICATIONS: Lisinopril/hydrochlorothiazide 20/25 mg 1 tablet by mouth daily, simvastatin 10 mg by mouth at bedtime daily, trospium, clonazepam. ALLERGIES: NO KNOWN DRUG ALLERGIES. NO KNOWN FOOD ALLERGIES. NO KNOWN ALLERGIES TO LATEX. NO KNOWN ALLERGIES TO IODINE OR OTHER CONTRAST MATERIALS. PHYSICAL EXAMINATION VITAL SIGNS: Height 65 inches, weight 140 pounds, BMI 23.7 kg per meter squared. Blood pressure 143/67 mmHg, pulse 75 beats per minute, respiratory rate 18 breaths per minute, oxygen saturation 98% on room air. GENERAL: The patient is awake and alert, does not appear distressed. HEENT: Normocephalic, atraumatic. Pupils are equal, round, and reactive to light. Moist mucous membranes. NECK: Supple. No appreciable thyromegaly. No appreciable carotid bruits. CARDIOVASCULAR: S1, S2, regular rate and rhythm. No murmurs, rubs, or gallops. RESPIRATORY: Clear to auscultation bilaterally. No wheezes, rhonchi, or rales. EXTREMITIES: The skin is warm and dry. No clubbing, cyanosis, or edema. The posterior tibial and dorsalis pedis pulses are 2+ and symmetric. SKIN: No rashes or lesions. NEUROLOGIC Memory/Attention: The patient is awake and alert, oriented to person, place, time, and situation. Cranial Nerves: Cranial nerve 1 -- not tested. Cranial nerve II, III, IV, and VII -- pupils are equal and round, react briskly to light (from 4 mm to 2 mm). Extraocular movements intact. No nystagmus. Cranial nerve V -- sensation to light touch and pinprick is intact in the bilateral V1 through V3 distributions. Strength of the temporalis and masseter muscles is within normal limits. Cranial nerve VII -- the face is symmetric as are all facial movements. Strength is within normal limits. Cranial nerve VIII -- hearing is diminished to finger rub bilaterally. Cranial nerve IX, X -- the soft palate elevates equally and symmetrically. Cranial nerve XI -- normal strength of the bilateral sternocleidomastoid and trapezius muscles. Cranial nerve XII -- the tongue protrudes midline and moves symmetrically from side to side. Strength: Bulk is normal. Strength is 5/5 in the bilateral deltoids, biceps, triceps, wrist flexors and extensors, finger flexors and extensors, intrinsic hand muscles, hip flexors, knee flexors and extensors, ankle dorsiflexion and plantar flexion, and intrinsic foot muscles. Tone is normal. DTRs: Deep tendon reflexes are 1+ and symmetric at the triceps, biceps, and brachioradialis. Deep tendon reflexes are absent and symmetric at the patellas and Achilles. Plantar responses are flexor bilaterally. Sensation: Sensation is intact to light touch and pinprick in both arms and both legs. Cerebellar: Phcwvp-jomj-pytoaz and heel-boateng movements are intact without dysmetria or other impairment. Gait: Ms. Gabriel ambulates with a walker as well as standby assist from her nurse. The patient posture is erect. Her base is widened and her stride length shortened. Ms. Gabriel does pick her feet off the ground with walking. Speech: Spontaneous speech is normal without appreciable dysarthria or aphasia. Repetition is intact. Involuntary Movements: None. Pronator Drift: None. LABORATORY DATA: A basic metabolic panel is significant for chloride of 109, carbon dioxide of 21. Hemoglobin A1c is 5.9. Total cholesterol 115, triglycerides 89, LDL cholesterol 52, HDL cholesterol 45. The CBC with differential and platelets reveals a white blood cell count 6.29 with a normal differential. The hemoglobin and hematocrit are 10.3 and 32.1, respectively. The platelet count is 215. A coagulation profile is within normal limits. A urinalysis reveals slightly cloudy urine with trace protein, 1+ blood, positive nitrites, 1+ leukocyte esterase, greater than 50 white blood cells, few urine epithelials cells, and many urine bacteria. A urine culture has been collected and is pending. DIAGNOSTIC STUDIES: Electrocardiogram, October 31, 2018: Sinus rhythm at 73 beats per minute. Left atrial enlargement. Left ventricular hypertrophy. Chest x-ray, October 31, 2018: No acute radiographic abnormality. CT of the brain without contrast, October 31, 2018: On my review, there is no evidence of recent large territorial ischemia, hemorrhage, mass, or mass effect. There is diffuse cerebral atrophy with dilatation of the ventricles. There are findings compatible with moderate chronic small vessel ischemic disease. MRI of the brain without contrast, October 31, 2018: On my review, there is no evidence of recent large territorial ischemia, hemorrhage, mass, or mass effect. There is a chronic lacunar infarct in the anterior corpus callosum. There is diffuse cerebral atrophy with enlargement of the ventricles, slightly more prominent than expected. There are scattered T2/FLAIR hyperintense foci in the periventricular white matter compatible with moderate chronic small vessel ischemic disease. ASSESSMENT AND PLAN: Ms. Gabriel is an 88-year-old woman with past medical history significant for hypertension, hyperlipidemia, urinary incontinence, and multiple urinary tract infections, admitted to [facility] on October 31, 2018, following the abrupt onset of dizziness, which is described as a mixture of vertigo and lightheadedness as well as urinary tract infection. The patient's neurological examination is nonfocal. Her laboratory data and other diagnostic studies have been reviewed and are documented above. In my opinion, Ms. Gabriel does not have normal pressure hydrocephalus. Other than urinary incontinence which has been present for years, the patient does not have the symptoms commonly associated with normal pressure hydrocephalus. Based on the history provided by the patient, she has benign paroxysmal positional vertigo. The affected areas unknown because Ms. Gabriel could not tolerate Gilberto-Hallpike maneuvers. RECOMMENDATIONS 1. Meclizine 12.5 mg by mouth at bedtime daily will be prescribed. 2. Refer the patient to physical therapy as an outpatient for vestibular exercises. 3. Continue intravenous antibiotics for the urinary tract infection. 4. Defer treatment of the remaining medical comorbidities to the primary and other services. Thank you for this consultation. I will continue to follow the patient while she remains in the hospital. TIME SPENT: 70 minutes. Job#: [id number] AKU MTDD
[2018-11-01] MEDS ORDERED: METHAZOLAMIDE50 MG PO (18:11)
[2018-11-01] MEDS ORDERED: LATANOPROST2.5 ML OP (18:11)
[2018-11-01] MEDS ORDERED: PATADAY2.5 ML OU (18:11)
[2018-11-01] MEDS: MECLIZINE HCL 12.5 MG TAB PO SCH (22:23)
[2018-11-01] MEDS: CLONAZEPAM 1 MG TAB PO PRN (23:58)
[2018-11-02] VITALS (8 sets, daily range): BP systolic 120–147; BP diastolic 69–80
--- NOTE | 2018-11-02 03:38 | Progress Note ---
DATE: November 02, 2018 INTERNAL MEDICINE PROGRESS NOTE COVERING FOR: Dr. Jason De. SUBJECTIVE: Ms. Gabriel was seen and examined at bedside. She continues to have slow progress. She was seen by neurologist who amended the diagnosis to be predominantly benign positional paroxysmal vertigo. Patient was felt not to have normal pressure hydrocephalus. Prolonged discussion was held with patient and then with daughter to confirm. Patient is not feeling confident to go home as she lives alone, and she is not able to deal with her own circumstances. Daughter is not able to take care of the patient since she is working right now, so she would have to arrange things later. REVIEW OF SYSTEMS: No bleeding, no rash. OBJECTIVE VITAL SIGNS: Afebrile. Vital signs noted per the chart record. GENERAL: In no acute distress, alert and calm. HEENT: Normocephalic and atraumatic. Throat is midline. NECK: Supple. LUNGS: Bilateral air entry clear. CARDIOVASCULAR: S1 and S2. No murmurs, rubs, or gallops. ABDOMEN: Soft and nontender. EXTREMITIES: No clubbing. No cyanosis. There is no edema. INTEGUMENT: No rash, no purpura. NEUROLOGIC: Gait was not tested by me. LABS: Potassium 4.0, 20 BUN, and 0.9 creatinine. White count 6 and 32 hematocrit. IMPRESSION 1. Significant dizziness/vertigo, most consistent with benign paroxysmal positional vertigo. 2. Poor social situation. 3. Chronic urinary incontinence, no evidence of normal pressure hydrocephalus. 4. Chronic lacunar infarct. 5. Hypertension. 6. Dyslipidemia. 7. Possible anxiety. 8. Urinary tract infection, new diagnosis. PLAN: Maintain patient here. Continue to try to ambulate her. Continue to try to allow her to improve. Meclizine was ordered. After discussion with patient and daughter, patient may need to go to custodial facility for intermediate care. Antibiotics were initiated for urinary tract infection. We will follow up culture, which is pending. Job#: [id number]
--- NOTE | 2018-11-02 07:01 | NUR ---
Report given to day shift nurse and walking rounds complete.
[2018-11-02] MEDS ORDERED: LISINOPRIL10 MG PO (09:24)
[2018-11-02] MEDS: CEFTRIAXONE SOD 1 GM/NS 50 ML 50 ML IV SCH (09:33)
[2018-11-02] MEDS ORDERED: SIMVASTATIN20 MG PO (13:05)
[2018-11-02] MEDS: OLOPATADINE OP SCH (13:30)
[2018-11-02] MEDS: [UNRECOGNIZED DRUG - OTHER] OP SCH (13:30)
[2018-11-02] MEDS ORDERED: CLONAZEPAM1 MG PO (14:47)
[2018-11-02] MEDS ORDERED: CLONAZEPAM 0.5 MG TAB PO PRN (15:30)
--- NOTE | 2018-11-02 16:51 | Progress Note ---
DATE: November 02, 2018 INTERNAL MEDICINE PROGRESS NOTE COVERING FOR: Dr. Jason De. SUBJECTIVE: Ms. Gabriel was seen and examined at bedside. Patient continues to have steady progress. She is able to walk today. She was able to walk putting the walker to the side and she was able to use mcnally and rails to help to keep her balanced. She is eating fair amount. She had a bowel movement. REVIEW OF SYSTEMS: No headaches, no bleeding. OBJECTIVE VITAL SIGNS: Afebrile. Vital signs noted per the electronic record. GENERAL: In no acute distress, alert and calm, just weak. HEENT: Normocephalic, atraumatic. NECK: Supple. Throat midline. LUNGS: Bilateral air entry, clear. CARDIOVASCULAR: S1 and S2. No murmurs, rubs, or gallops. ABDOMEN: Soft and nontender. EXTREMITIES: No clubbing. No cyanosis. No edema. INTEGUMENT: No rash. No purpura. IMPRESSION AND PLAN 1. Benign paroxysmal positional vertigo, slightly improved. 2. Debility, weakness, unstable gait. 3. Hypertension. 4. Anxiety. 5. Dyslipidemia. 6. Poor social structure. At this time, continue to allow the patient to work with physical therapy. Continue to mobilize the patient. Meclizine as needed. Continue other medicines including clonazepam. She is on ceftriaxone for urinary tract infection. Once again, discussed with the patient. She still prefers still nursing facility given her functionality at this time. We will follow closely. Followup urinary culture with so far greater than 100,000 gram-negative rods. Job#: [id number] KINA
[2018-11-02] MEDS: METHAZOLAMIDE 50 MG PO SCH (17:25)
[2018-11-02] MEDS: MECLIZINE HCL 12.5 MG TAB PO SCH (19:36)
[2018-11-02] MEDS: CLONAZEPAM 1 MG TAB PO PRN (19:37)
[2018-11-02] MEDS ORDERED: LATANOPROST(OPTH) 2.5 ML BTL OP SCH (21:00)
[2018-11-02] MEDS ORDERED: SIMVASTATIN 20 MG TAB PO SCH (21:00)
[2018-11-02] MEDS ORDERED: NON-FORMULARY MEDICATION (Simvastatin 10 MG) PO SCH (21:00)
[2018-11-03 00:15] VITALS: BP 154/74
[2018-11-03 04:18] VITALS: BP 142/66
[2018-11-03 07:31] VITALS: BP 146/77
[2018-11-03 07:32] VITALS: BP 146/77
[2018-11-03] MEDS: METHAZOLAMIDE 50 MG PO SCH (09:00)
[2018-11-03] MEDS ORDERED: LISINOPRIL 10 MG TAB PO SCH (09:00)
[2018-11-03] MEDS: OLOPATADINE OP SCH (09:00)
[2018-11-03] MEDS: [UNRECOGNIZED DRUG - OTHER] OP SCH (09:00)
[2018-11-03] MEDS: CEFTRIAXONE SOD 1 GM/NS 50 ML 50 ML IV SCH (10:23)
[2018-11-03] MEDS ORDERED: Meclizine Hcl PO (10:24)
[2018-11-03] MEDS ORDERED: AMOXICILLIN500 MG PO (10:24)
[2018-11-03 11:12] VITALS: BP 120/71
--- NOTE | 2018-11-03 12:02 | NUR ---
ROLLING WALKER GIVEN
--- NOTE | 2018-11-03 12:09 | NUR ---
patient discharged home, Dr Steele had rounds, Rolling walker provided by physical therapy as recommended by Physical Therapy, Tele box returned, IV canula removed with tip intact, no SS of infiltration noted, Daughter at bed side giving ride, patient denies any pain, not in any distress, transported via to [facility]
--- NOTE | 2018-11-04 05:16 | Discharge Summary ---
PRIMARY CARE DOCTOR: Dr. Martha Monsalve [facility] DOCTOR: Dr. Jason De PRIMARY DIAGNOSIS: Dizziness, gait instability, later found to be from benign paroxysmal positional vertigo. HOSPITAL COURSE: Ms. Gabriel is a pleasant 88-year-old female who was having ataxic gait, dizziness and hypertension. Patient came to the emergency room. Notable per the CT scan done in the emergency room revealed some moderate chronic changes. Then this led to an MRI of the brain in the emergency room, which had moderate supratentorial ventriculomegaly read by radiologist out of proportion to sulcal prominence, which was communicating hydrocephalus inciting as a possibility. There was old small lacunar insult and other chronic white matter changes. Due to this finding, the patient was recommended for hospitalization. Patient was seen by neurologist within a few hours who diagnosed her with benign paroxysmal positional vertigo, and did not feel that there was significant change of normal pressure hydrocephalus. She recommended meclizine and physical therapy. Patient was diagnosed with a UTI, which later grew into E. coli, greater than 100,000 organisms, but it was multi-sensitive. Due to the patient's poor progress and poor gait, and the fact that she lives alone, she was considering shelter facility transfer. After a couple of days, she improved significantly, and decided to go home with the daughter's support. MEDICATIONS AT DISCHARGE: Please see discharge medication list for details. DIET: Cardiac, low sodium diet. ACTIVITY: As tolerated, fall precautions and rolling walker recommended. FOLLOWUP: Patient should follow up with physical therapy, as well as with PCP, Dr. Monsalve. Greater than 30 minutes in direct care and coordination on this date. TARA KUMAR MD Job#: [id number] ALISSA
[2018-11-04] MEDS ORDERED: LISINOPRIL 20 MG TAB PO SCH (09:00)
== END 2018-11-03 12:12 | disposition home or self-care (01) ==
LOC: FSED 09:16 → ERHOLD 11:11 → IMCU 14:12
PROVIDERS: ADMIT Internal Medicine; ATTEND Internal Medicine
DX: H81.10 Benign paroxysmal vertigo, unspecified ear (principal); I10 Essential (primary) hypertension; F41.9 Anxiety disorder, unspecified; H40.9 Unspecified glaucoma; D64.9 Anemia, unspecified; F41.1 Generalized anxiety disorder; E78.5 Hyperlipidemia, unspecified; R27.0 Ataxia, unspecified; R32 Unspecified urinary incontinence; Z87.440 Personal history of urinary (tract) infections; N39.0 Urinary tract infection, site not specified; R53.81 Other malaise; Z80.3 Family history of malignant neoplasm of breast; Z82.49 Family history of ischemic heart disease and other diseases of the circulatory system; Z86.73 Personal history of transient ischemic attack (TIA), and cerebral infarction without residual deficits; B96.20 Unspecified Escherichia coli [E. coli] as the cause of diseases classified elsewhere
CPT/HCPCS: 36415; 70450; 70551; 71046; 73030; 80048; 80053; 80061; 81001; 81003; 83036; 85025 ×2; 85610; 85730; 87086; 87186; 93005; 97116; 97161; 99284; G0378 ×4; J0696 ×3; J2060; J2405; J7040; J8597 ×3

== ENCOUNTER 2019-05-05 09:37 | Emergency (ER) | payer MEDICARE, OTHER ==
[~2019-05-05] VITALS: Ht 165.1 cm; Wt 61.2 kg
[~2019-05-05 09:37] MED LIST changes: +AMOXICILLIN500 MG PO; +LATANOPROST2.5 ML OP; +LISINOPRIL10 MG PO; +METHAZOLAMIDE50 MG PO; +Meclizine Hcl PO; +PATADAY2.5 ML OU; +SIMVASTATIN20 MG PO
--- OUTSIDE RECORDS SUMMARY | 2019-05-05 09:41 | XMS REPORT | Clinical Summary ---
Author Author [facility] Address Unknown Phone Unavailable Care Team Providers Care Adoption Social Worker Name Role Phone Sharpless PCP Allergies Comments [...] (325 mg 8 total) by mouth daily. Active Problems Problem Noted Date Acute encephalopathy 12/14/2017 Acute hyponatremia 12/13/2017 Generalized weakness 12/12/2017 Arthritis of right knee 11/28/2017 Status post right knee replacement 11/28/2017 Open-angle glaucoma 12/23/2014 Overview: UPDATED BY ICD10 SNOMED/IMO UPDATES Social History Date Tobacco Use Types Packs/Day Years Used Never Smoker Smokeless Tobacco: Never Used Alcohol Use Drinks/Week oz/Week Comments No Sex Assigned at Date Recorded Not on file Industry Job Start Date Occupation Not on file Not on file Not on file Travel End Travel History Travel Start No recent travel history available. Last Filed Vital Signs Not on file Plan of Treatment Not on file Implants Device Identifier Shelf Expiration Date Model / Serial / Lot Implanted Type Area Manufactur er 02/21/2020 6191-1-001 / / [id number] Cement [employer] Smplx P Full Cement/Fredy Right: Knee BTEO:ST 6191-1-001 - [id number]/Adhesi BRIDGER Implanted: Qty: 2 on 11/28/2017 by Hayde Gallego MD 08/29/2022 5551-G-320 / / [id number] Patella Tri Asymmetric [id number] Joints Right: Knee BETO:ST 5551-G-320 - [id number] BRIDGER Implanted: Qty: 1 on 11/28/2017 by Hayde Jonas MD 04/17/2022 5530-G-409 / / [id number] Insrt Tib #4 9mm 5530-G-409 - Joints Right: Knee BETO:ST [id number] BRIDGER Implanted: Qty: 1 on 11/28/2017 by Hayde Jonas MD 07/04/2022 5510-F-302 / / [id number] Comp Femoral #3 R 5510-F-302 - Joints Right: Knee BETO:ST [id number] BRIDGER Implanted: Qty: 1 on 11/28/2017 by Hayde Jonas MD 07/22/2022 5521-B-400 / / [id number] Baseplt Tri Ts 4 5521-B-400 - Joints Right: Knee BETO:ST [id number] BRIDGER Implanted: Qty: 1 on 11/28/2017 by Hayde Jonas MD CS Results Not on fileafter 05/04/2018 Insurance Payer Benefit Subscriber ID Type Phone Address Plan / Group [employer] TEX[employer] [facility] Advance Directives For more information, please contact: [facility] [address] [place] [id number] Date Inactivated Comments Code Status Date Activated 12/14/2017 1:56 PM Full Code 12/13/2017 3:55 AM This code status was determined by: Patient 12/01/2017 3:48 PM Full Code 11/28/2017 5:06 AM This code status was determined by: Patient
[2019-05-05] MEDS ORDERED: HYDROCODONE/APAP 5MG-325MG TAB ONE (11:10)
[2019-05-05] MEDS ORDERED: HYDROCODONE/APAP 5MG-325MG TAB PO ONE (11:30)
--- NOTE | 2019-05-05 11:59 | Diagnostic Imaging Report ---
EXAMINATION: FOOT 3 VIEW RT - HOPD, KNEE 3VW RT - HOPD INDICATION: Pain, no trauma COMPARISON: None FINDINGS: Right foot: 3 views of the right foot demonstrate no acute fracture or dislocation. Diffuse osteopenia. The soft tissues appear unremarkable. Right knee: 3 views of the right knee demonstrate postoperative changes of right total knee replacement. Alignment is anatomic. No acute fracture or dislocation. No evidence of hardware failure. Small suprapatellar joint effusion. Atherosclerotic vascular calcifications. IMPRESSION: No acute osseous injury. Anatomic alignment status post right total knee replacement. Signed by: Mar Vigil MD on 05/05/2019 11:56 AM
[2019-05-05 12:28] VITALS: BP 127/87
[2019-05-05] MEDS ORDERED: TYLENOL WITH C1 EACH PO (12:31)
[2019-05-05] MEDS ORDERED: ONDANSETRON ODT8 MG PO (12:34)
== END 2019-05-05 12:36 | disposition home or self-care (01) ==
LOC: FSED 09:37
DX: M79.661 Pain in right lower leg (principal); M79.671 Pain in right foot; I10 Essential (primary) hypertension; F41.1 Generalized anxiety disorder; E78.5 Hyperlipidemia, unspecified
CPT/HCPCS: 99283